=== PATIENT | female | born 1990 | race Caucasian/White ===

== ENCOUNTER 2017-07-25 12:01 | Inpatient (IN) | payer OTHER ==
[~2017-07-25] VITALS: Ht 162.6 cm; Wt 117.9 kg
[2017-07-25 12:09] VITALS: BP 137/82
--- NOTE | 2017-07-25 12:15 | NUR ---
PATIENT AMBULATED TO BED 10
--- NOTE | 2017-07-25 12:20 | NUR ---
PATIENT PRESENTS TO ED WITH c/o generalized weakness x1 week hx none; DENIES N/V/D; SKIN IS PINK/WARM/DRY; AAOX4 WITH EVEN AND STEADY GAIT; LUNGS CLEAR BL; HR EVEN AND REGULAR; PT DENIES ANY FEVER, CP, SOB, OR COUGH AT THIS TIME; PATIENT STATES PAIN OF 0/10 AT THIS TIME; VSS; PATIENT POSITIONED FOR COMFORT; HOB ELEVATED; BEDRAILS UP X2; BED DOWN. ER MD MADE AWARE OF PT STATUS.
--- NOTE | 2017-07-25 12:34 | NUR ---
DR FERRARO EVALUATING AAO PT AT BEDSIDE
[2017-07-25] MEDS ORDERED: NACL 0.9% 1,000 ML IV ONE ×2 (12:40→13:35)
[2017-07-25 13:03] LABS: BASOPHILS # (AUTO) 0.5 K/uL (0.00-0.22); BASOPHILS % (AUTO) 3.1 % (0.0-2.0); EOSINOPHILS # (AUTO) 0.1 K/uL (0-0.4); EOSINOPHILS % (AUTO) 0.6 % (0.0-4.0); HEMATOCRIT 50.4 % (36-48); HEMOGLOBIN 16.8 g/dL (12.0-16.0); LYMPHOCYTES # (AUTO) 1.1 K/uL (2.5-16.5); LYMPHOCYTES % (AUTO) 6.1 % (20.5-51.1); MEAN CORPUSCULAR HEMOGLOBIN 29 pg (27-31); MEAN CORPUSCULAR HGB CONC 33 g/dL (33-37); MEAN CORPUSCULAR VOLUME 87 fL (80-94); MONOCYTES # (AUTO) 0.4 K/uL (0.8-1.0); MONOCYTES % (AUTO) 2.4 % (1.7-9.3); NEUTROPHILS # (AUTO) 15.1 K/uL (1.8-7.7); NEUTROPHILS % (AUTO) 87.8 % (42.2-75.2); PLATELET COUNT (AUTO) 368 K/uL (140-450); RED BLOOD CELL COUNT(AUTO) 5.81 MIL/uL (4.20-5.40); RED CELL DISTRIBUTION WIDTH 12.9 % (11.6-13.7); WHITE BLOOD COUNT (AUTO) 17.3 K/uL (4.8-10.8)
[2017-07-25 13:26] LABS: ANION GAP 32.9 (8-16); CARBON DIOXIDE 12.7 mmol/L (21-32); CREATININE 1.5 mg/dL (0.6-1.3); POTASSIUM 4.6 mmol/L (3.5-5.1); TOTAL BILIRUBIN 0.7 mg/dL (0.0-1.0)
[2017-07-25] MEDS ORDERED: INSULIN REGULAR, HUMAN 100 UNIT/ML VIAL IVP ONE (13:35)
[2017-07-25 13:54] LABS: APPEARANCE,URINE HAZY (CLEAR); BILIRUBIN,URINE NEGATIVE (NEGATIVE); BLOOD, URINE 1+ (NEGATIVE); COLOR,URINE YELLOW (YELLOW); LEUKOCYTE ESTERASE ,URINE NEGATIVE (NEGATIVE); NITRITE, URINE NEGATIVE (NEGATIVE); PH,URINE 5.5 (5.0-9.0); UGLUCOSE 3+ (NEGATIVE)
[2017-07-25 14:04] LABS: RBC,URINE 0-5 (RARE) /HPF (0-5); WBC,URINE 0-5 (RARE) /HPF (0-5)
[2017-07-25 14:05] LABS: URIC ACID CRYSTALS,URINE 0-10 /HPF (None Seen); URINE AMORPHOUS URATE 1+ /HPF (None Seen); YEAST,URINE Few /HPF (None Seen)
[2017-07-25] MEDS ORDERED: INSULIN REGULAR, HUMAN 100 UNIT in NACL 0.9% 100 ML IV ONE ×2 (14:05)
[2017-07-25] MEDS ORDERED: NACL 0.9% 1,000 ML IV SCH (14:27)
[2017-07-25] MEDS ORDERED: ACETAMINOPHEN 325 MG TAB PO PRN (14:30)
[2017-07-25] MEDS ORDERED: ONDANSETRON 4 MG/2 ML VIAL IVP PRN (14:30)
[2017-07-25] MEDS ORDERED: BLOOD GLUCOSE MONITORING 1 DEV DEV FS SCH (14:30)
[2017-07-25] MEDS ORDERED: DEXTROSE 50% 50 ML SYR IVP PRN ×2 (14:30)
[2017-07-25] MEDS ORDERED: POTASSIUM CHL 20 MEQ/NACL 0.9% 1,000 ML IV ONE (14:30)
[2017-07-25] MEDS ORDERED: HYDROcodone/APAP 5/325 MG 1 TAB TAB PO PRN (14:30)
[2017-07-25 14:45] VITALS: BP 124/72
--- NOTE | 2017-07-25 15:05 | NUR ---
Patient will be admitted to care of DR PETERSON. Admited to ICU. Will go to room ICU5. Belongings list completed. Report to SARAHY SEBASTIAN.
--- NOTE | 2017-07-25 15:15 | NUR ---
CALLED DR. PETERSON TO VERIFY ORDERS SAID WILL CALL US BACK. WAITING FOR THE CALL.
[2017-07-25] MEDS: BLOOD GLUCOSE MONITORING 1 DEV DEV FS SCH ×9 (15:39→23:03)
--- NOTE | 2017-07-25 15:41 | NUR ---
AT 1345 DE RECEIVED FROM ER VIA GURNEY. PT A/O X4, ABLE TO MAKE NEEDS KNOWN. ORIENTED TO ICU, STAFF, BED, CALL LIGHT. PT ON BEDSIDE MONITOR. SKIN DRY AND WARM TO TOUCH. PUPILS REACTIVE TO LIGHT. LUNGS SOUND CLEAR ON AUSCULTATION. PERIPHERAL LINE ON RIGHT UPPER ARM 20 G. 0.9% SODIUM CHLORIDE BOLUS RUNNING. IV SITE INTACT. ABDOMEN SOFT ROUND AND NON-TENDER. ACTIVE BOWEL SOUND ON AUSCULTATION. SKIN INTACT. DENIES PAIN AT THIS TIME. KEPT HOB ELEVATED. PLACED SCDS ON BLE PER ORDER. WILL CONTINUE TO MONITOR.
[2017-07-25 16:00] VITALS: BP 103/69
[2017-07-25] MEDS: INSULIN REGULAR, HUMAN 100 UNIT in NACL 0.9% 100 ML IV SCH ×4 (16:25→20:07)
[2017-07-25 18:00] VITALS: BP 103/72
[2017-07-25 18:32] LABS: ANION GAP 27.1 (8-16); CARBON DIOXIDE 12.3 mmol/L (21-32); CREATININE 1.1 mg/dL (0.6-1.3); POTASSIUM 4.4 mmol/L (3.5-5.1)
--- NOTE | 2017-07-25 19:07 | NUR ---
PT RESTING IN BED COMFORTABLY. NO RESPIRATORY DISTRESS. ST ON MONITOR. NO CHANGE IN LOC. WILL CONTINUE TO MONITOR.
--- NOTE | 2017-07-25 19:17 | NUR ---
REPORT GIVEN TO NOC SHIFT RN FOR CONTINUITY OF CARE. PT ON STABLE CONDITION.
--- NOTE | 2017-07-25 19:23 | NUR ---
report received from am nurse. orders labs reviewed. no acute distress noted. will continue to observe.
--- NOTE | 2017-07-25 19:47 | NUR ---
PT AWAKE ALERT ORIENTED X4. PERRLA +3. STRONG UPPER AND LOWER EXTREMITIES. SINUS TACH 110-120S. NO EDEMA NOTED. LUNGS CLEAR, DIMINISHED @ BASES. ABD SOFT NON DISTENDED. PT HAD DINNER TONIGHT 80-90% EATEN. PT AMB @ BEDSIDE TO BEDSIDE COMMODE. SKIN INTACT. PERIPHERAL IVS NOTED TO L HAND AND R ANTECUBITAL. INSULIN DRIP @ 5 UNITS/HR. PT DENIES FEVER, COUGH, LIGHTHEADEDNESS AND PAIN @ THIS TIME. NO OTHER S/S OF ACUTE DISTRESS NOTED. WILL CONTINUE TO OBSERVE.
[2017-07-25 20:00] VITALS: BP 136/86
--- NOTE | 2017-07-25 20:26 | NUR ---
SPOKE WITH DR. NICHOLSON (SORTING AND FOLDING SUPERVISOR) TO CLARIFY IVF ORDERS. DR. PETERSON ORDERED NS AT 200 MLS/HR AND NS WITH 20MEQ KCL AT 100 MLS/HR (ONCE). INFORMED DR. NICHOLSON THAT CURRENT POTASSIUM LEVEL IS 4.4, BS AT [address] NICHOLSON ORDERED TO DC NS AT 200 MLS AND CONTINUE NS WITH 20 % KCL AT 100 MLS/HR.
--- NOTE | 2017-07-25 20:45 | NUR ---
PT AMB TO RESTROOM WITH ASSISTANCE OF CHARGE NURSE, PT ABLE TO AMBULATE, STEADY GAIT. WILL CONTINUE TO MONITOR.
--- NOTE | 2017-07-25 21:15 | NUR ---
FAMILY VISITORS @ BEDSIDE
[2017-07-25 22:00] VITALS: BP_SYST 124; BP_DIAS 7; BP_DIAS 72
--- NOTE | 2017-07-25 22:26 | NUR ---
PT AWAKE WATCHING TELEVISION, BS RECHECKED 271. PT DENIES PAIN @ THIS TIME. NO HEADACHE OR DIAPHORESIS NOTED. INSULIN DRIP RUNNING @ 3 UNIT/HR. NO OTHER S/S OF DISTRESS NOTED WILL CONTINUE TO OBSERVE.
[2017-07-26] VITALS (12 sets, daily range): BP systolic 107–147; BP diastolic 57–94
[2017-07-26] MEDS: BLOOD GLUCOSE MONITORING 1 DEV DEV FS SCH ×24 (00:06→22:59)
[2017-07-26] MEDS: INSULIN REGULAR, HUMAN 100 UNIT in NACL 0.9% 100 ML IV SCH ×8 (00:09→16:21)
--- NOTE | 2017-07-26 00:25 | NUR ---
BS CHECKED 245 - INSULIN DRIP @ 2 UNITS/HR. PT RESTING IN BED NO ACUTE S/S OF DISTRESS NOTED WILL CONTINUE TO OBSERVE.
[2017-07-26 00:33] LABS: ANION GAP 19.4 (8-16); CARBON DIOXIDE 16.6 mmol/L (21-32)
--- NOTE | 2017-07-26 02:10 | NUR ---
PT ASLEEP IN BED. VSS. PT AROUSABLE DENIES PAIN. WILL CONTINUE TO OBSERVE.
[2017-07-26] MEDS: POTASSIUM CHL 20 MEQ/NACL 0.9% 1,000 ML IV SCH ×3 (02:29→16:30)
--- NOTE | 2017-07-26 03:45 | NUR ---
PT ASLEEP AROUSABLE. INSULIN DRIP @ 2 UNITS/HR. WILL CONTINUE TO OBSERVE.
--- NOTE | 2017-07-26 05:55 | NUR ---
PT AMB TO RESTROOM WITH ASSIST. DENIES HEADACHE OR PAIN. WILL CONTINUE TO OBSERVE.
[2017-07-26 06:12] LABS: BASOPHILS # (AUTO) 0.3 K/uL (0.00-0.22); EOSINOPHILS % (AUTO) 0.1 % (0.0-4.0); HEMATOCRIT 45.1 % (36-48); HEMOGLOBIN 15.1 g/dL (12.0-16.0); LYMPHOCYTES % (AUTO) 19.5 % (20.5-51.1); MEAN CORPUSCULAR HEMOGLOBIN 29 pg (27-31); MEAN CORPUSCULAR HGB CONC 33 g/dL (33-37); MEAN CORPUSCULAR VOLUME 86 fL (80-94); MONOCYTES # (AUTO) 1.7 K/uL (0.8-1.0); MONOCYTES % (AUTO) 10.7 % (1.7-9.3); NEUTROPHILS # (AUTO) 10.6 K/uL (1.8-7.7); NEUTROPHILS % (AUTO) 67.7 % (42.2-75.2); PLATELET COUNT (AUTO) 341 K/uL (140-450); RED BLOOD CELL COUNT(AUTO) 5.25 MIL/uL (4.20-5.40); RED CELL DISTRIBUTION WIDTH 13.1 % (11.6-13.7); WHITE BLOOD COUNT (AUTO) 15.6 K/uL (4.8-10.8)
[2017-07-26 06:34] LABS: CREATININE 0.9 mg/dL (0.6-1.3)
--- NOTE | 2017-07-26 07:13 | NUR ---
REPORT GIVEN TO AM NURSE. ORDERS, POC ENDORSED TO AM NURSE. WILL CONTINUE TO MONITOR.
--- NOTE | 2017-07-26 07:25 | NUR ---
RECEIVED BEDSIDE REPORT FROM OFFICE SECRETARY RN,HO, FOR CONTINUITY OF CARE. PATIENT OBSERVED RESTING IN BED, SEMI FOWLERS IN LOWEST POSSIBLE POSITION, AAOX4, ABLE TO FOLLOW COMMANDS AND MAKE NEEDS KNOWN. SKIN IS INTACT, WARM AND DRY. VVS, SR ON MONITOR, NO COMPLAINTS OF PAIN AT THIS TIME. LUNG SOUNDS ARE CLEAR, REGULAR AND SYMMETRICAL. S1 AND S2 HEART SOUNDS HEARD, CAP REFILL LESS THAN 3 SECS. PATIENT HAS PERIPHERAL IV TO LEFT HAND, ASYMPTOMATIC, PATENT, AND INTACT WITH INSULIN DRIP RUNNING AT 3UNITS/HR. LAST BS WAS 285 PER OFFICE SECRETARY RN. PATIENT HAS ANOTHER PERIPHERAL IV TO RIGHT AC, ASYMPTOMATIC, PATENT, AND INTACT. NO SIGNS OF DISTRESS NOTED, PATIENT DENIES ANY FEVER OR COUGH AT THIS TIME. WILL CONTINUE TO MONITOR.
--- NOTE | 2017-07-26 07:55 | NUR ---
BREAKFAST TRAY PROVIDED TO PATIENT, NO SIGNS OF DISTRESS NOTED.
--- NOTE | 2017-07-26 09:20 | NUR ---
DR. PETERSON IN TO SEE PATIENT, UPDATED ON PATIENT'S CONDITION. WILL FOLLOW UP ON ANY ORDERS.
--- NOTE | 2017-07-26 11:55 | NUR ---
LUNCH TRAY PROVIDED FOR PATIENT, NO SIGNS OF DISTRESS NOTED AT THIS TIME. WILL MONITOR CLOSELY
[2017-07-26 12:52] LABS: ANION GAP 15.2 (8-16); CREATININE 0.9 mg/dL (0.6-1.3); POTASSIUM 4.2 mmol/L (3.5-5.1)
--- NOTE | 2017-07-26 14:08 | NUR ---
CM NOTE CONCURRENT REVIEW FAXED TO [facility] / FAX# [phone], ATTN: HERVE #[phone]
--- NOTE | 2017-07-26 17:47 | NUR ---
PROVIDED PATIENT WITH DINNER TRAY, NO SIGNS OF DISTRESS NOTED. DENIES ANY PAIN OR WEAKNESS AT THIS TIME. WILL CONTINUE TO MONITOR
--- NOTE | 2017-07-26 18:35 | NUR ---
PATIENT'S FAMILY AT BEDSIDE, UPDATED ON PATIENT'S CONDITION. PRESENTS NO SIGNS OF DISTRESS AT THIS TIME. WILL CONTINUE TO MONITOR
--- NOTE | 2017-07-26 19:06 | NUR ---
GAVE BEDSIDE REPORT TO SLINGER SEQUINS RN, ECHO, FOR CONTINUITY OF CARE. PATIENT PRESENTS NO SIGNS OF DISTRESS AT THIS TIME.
--- NOTE | 2017-07-26 19:06 | NUR ---
RECEIVED REPORT FROM SARAHY VICTOR AT BEDSIDE.
[2017-07-26 19:11] LABS: ANION GAP 12.3 (8-16); CARBON DIOXIDE 19.9 mmol/L (21-32); CREATININE 0.9 mg/dL (0.6-1.3); POTASSIUM 3.2 mmol/L (3.5-5.1)
--- NOTE | 2017-07-26 19:20 | NUR ---
SHIFT ASSESSMENT DONE. PATIENT AWAKE, ALERT AND ORIENTED X 4. VERBALLY RESPONSIVE, ABLE TO MAKE NEEDS KNOWN. SKIN WARM AND DRY TO TOUCH, RESPIRATIONS EVEN AND UNLABORED. NO APPARENT PHYSICAL DISTRESS. LUNG SOUNDS EQUAL BILATERALLY. RECEIVED ON INSULIN DRIP HUMULIN R 3 UNITS/HR. NO SIGNS/SYMPTOMS OF HYPERGLYCEMIA NOTED. WILL CONTINUE TO MONITOR BLOOD SUGAR Q1H. ABLE TO MOVE ALL EXTREMITIES. DENIES PAIN OR DISCOMFORT. SAFETY PRECAUTIONS MAINTAINED, BED ON LOW POSITION, CALL LIGHT WITHIN REACH, BED RAILS X 3, REMINDED TO USE CALL LIGHT WITHIN REACH.
--- NOTE | 2017-07-26 20:10 | NUR ---
Accucheck done: 261 mg/dl. Continue on 3 units/hr. No signs/symptoms of hyperglycemia noted. Will continue to monitor.
[2017-07-26] MEDS: MICONAZOLE VAG 2% 45 GM TUBE VG SCH (20:20)
--- NOTE | 2017-07-26 21:06 | NUR ---
Accucheck done: 262 mg/dl. Continue on 3 units/hr. No signs/symptoms of hyperglycemia noted. Will continue to monitor.
--- NOTE | 2017-07-26 22:06 | NUR ---
ACCUCHECK DONE: 271 MG/DL. CONTINUE ON INSULIN DRIP 3 UNITS/HR. NO SIGNS/SYMPTOMS OF HYPERGLYCEMIA. WILL CONTINUE TO MONITOR.
--- NOTE | 2017-07-26 23:00 | NUR ---
ACCUCHECK: 287 MG/DL. CONTINUE ON INSULIN DRIP 3U/HR. NO S/SX OF HYPERGLYCEMIA NOTED. WILL CONTINUE TO MONITOR.
[2017-07-27] VITALS (12 sets, daily range): BP systolic 95–133; BP diastolic 55–78
--- NOTE | 2017-07-27 | NUR ---
ACCUCHECK: 238 MG/DL. TITRATED INSULIN DRIP FROM 3 UNITS/HR TO UNITS/ HR. WILL CONTINUE TO MONITOR BLOOD SUGAR Q1H. NO SIGNS/SYMPTOMS OF HYPERGLYCEMIA NOTED.
[2017-07-27] MEDS: BLOOD GLUCOSE MONITORING 1 DEV DEV FS SCH ×24 (00:01→23:49)
[2017-07-27 00:40] LABS: ANION GAP 14.1 (8-16); CARBON DIOXIDE 20.1 mmol/L (21-32); CREATININE 0.8 mg/dL (0.6-1.3); POTASSIUM 3.2 mmol/L (3.5-5.1)
--- NOTE | 2017-07-27 01:00 | NUR ---
ACCUCHECK DONE: 234 MG/DL. CONTINUE INSULIN DRIP 2 UNITS/HR PER PROTOCOL. NO SIGNS/SYMPTOMS OF HYPERGLYCEMIA. WILL CONTINUE TO MONITOR.
--- NOTE | 2017-07-27 02:02 | NUR ---
ACCUCHECK DONE: 234 MG/DL. CONTINUE INSULIN DRIP 2 UNITS/HR PER PROTOCOL. NO SIGNS/SYMPTOMS OF HYPERGLYCEMIA. WILL CONTINUE TO MONITOR.
[2017-07-27] MEDS: POTASSIUM CHL 20 MEQ/NACL 0.9% 1,000 ML IV SCH ×3 (02:47→22:34)
--- NOTE | 2017-07-27 03:00 | NUR ---
ACCUCHECK DONE: 249 MG/DL. CONTINUE INSULIN DRIP 2 UNITS/HR PER PROTOCOL. NO SIGNS/SYMPTOMS OF HYPERGLYCEMIA. WILL CONTINUE TO MONITOR.
--- NOTE | 2017-07-27 04:10 | NUR ---
ACCUCHECK DONE: 219 MG/DL. CONTINUE INSULIN DRIP 2 UNITS/HR PER PROTOCOL. NO SIGNS/SYMPTOMS OF HYPERGLYCEMIA. ASLEEP AT THIS TIME. WILL CONTINUE TO MONITOR.
--- NOTE | 2017-07-27 05:01 | NUR ---
ACCUCHECK DONE: 219 MG/DL. CONTINUE INSULIN DRIP 2 UNITS/HR PER PROTOCOL. NO SIGNS/SYMPTOMS OF HYPERGLYCEMIA. ASLEEP AT THIS, NO APPARENT DISTRESS. WILL CONTINUE TO MONITOR.
--- NOTE | 2017-07-27 06:20 | NUR ---
ACCUCHECK DONE 218 MG/DL. CONTINUE ON 2 UNITS/HR. NO S/SX OF HYPERGLYCEMIA NOTED. CONTINUE TO MONITOR.
[2017-07-27 06:43] LABS: CREATININE 0.6 mg/dL (0.6-1.3)
--- NOTE | 2017-07-27 07:10 | NUR ---
ACCUCHECK DONE 236 MG/DL. CONTINUE ON 2 UNITS/HR. NO S/SX OF HYPERGLYCEMIA NOTED. CONTINUE TO MONITOR.
--- NOTE | 2017-07-27 07:16 | NUR ---
REPORT GIVEN TO SARAHY ESPINAL AT BEDSIDE FOR CONTINUITY OF CARE.
--- NOTE | 2017-07-27 07:30 | NUR ---
RECEIVED BEDSIDE REPORT FROM FACILITY SERVICE ASSOCIATE RN. PATIENT IS RESTING IN BED, AAOX4, ABLE TO FOLLOW COMMANDS AND MAKE NEEDS KNOWN. AFEBRILE. SR ON MONITOR, S1 S2 HEARD. NO C/O PAIN AT THIS TIME. PT IS ON ROOM AIR, LUNG SOUNDS CLEAR, BREATHING EVEN AND UNLABORED. ABDOMEN SOFT, NONTENDER WITH ACTIVE BOWEL SOUNDS. PATIENT HAS PERIPHERAL IVS G20 TO LEFT HAND, G20 TO RIGHT HAND, G22 TO RIGHT FOREARM ALL ASYMPTOMATIC, PATENT, AND INTACT. INSULIN DRIP RUNNING AT 2 UNITS/HR. SKIN IS INTACT, WARM AND DRY. NO SIGNS OF DISTRESS NOTED. ABLE TO MOVE ALL EXTREMITIES. SAFETY PRECAUTIONS IN PLACE. WILL CONTINUE TO MONITOR.
[2017-07-27] MEDS: PANTOPRAZOLE 40 MG TABEC PO SCH (09:09)
--- NOTE | 2017-07-27 09:11 | NUR ---
ADMINISTERED MEDICATION. PT TOLERATED WELL.
--- NOTE | 2017-07-27 09:30 | NUR ---
DR. PETERSON IN TO SEE AND EXAMINE PT. MADE AWARE OF POTASSIUM LEVEL OF 3.0. WILL FOLLOW UP ON ORDERS.
--- NOTE | 2017-07-27 11:27 | NUR ---
PATIENT HAS BEEN SCREENED AND CATEGORIZED HIGH NUTRITION RISK. PATIENT WILL BE SEEN WITHIN 1-2 DAYS OF ADMISSION. 07/26/17 - 07/27/[address]
--- NOTE | 2017-07-27 11:45 | NUR ---
NO CHANGE OF CONDITION AT THIS TIME. PT IS AWAKE, AAOX4, VSS. SAFETY PRECAUTIONS IN PLACE. WILL CONTINUE TO MONITOR.
[2017-07-27 12:40] LABS: ANION GAP 13.8 (8-16); CARBON DIOXIDE 20.8 mmol/L (21-32); CREATININE 0.7 mg/dL (0.6-1.3); POTASSIUM 3.6 mmol/L (3.5-5.1)
[2017-07-27] MEDS ORDERED: PROBIOTIC SCREEN 1 EA MISC MC PRN (14:20)
--- NOTE | 2017-07-27 14:42 | NUR ---
FAMILY AT BEDSIDE. PT IS STABLE. VITAL SIGNS WNL. NO C/O PAIN OR DISCOMFORT. WILL CONTINUE TO MONITOR.
--- NOTE | 2017-07-27 15:13 | NUR ---
FAXED CONCURRENT REVIEW TO [facility] [phone] PHONE FRANSICO [phone]
--- NOTE | 2017-07-27 15:44 | NUR ---
07/27/2017 RD INITIAL ASSESSMENT COMPLETED PLEASE REFER TO NUTRITION ASSESSMENT UNDER CARE ACTIVITY FOR ESTIMATED NUTRITIONAL NEEDS. CONTINUE 60 GMS [facility] DIET NURSING AND DIETARY STAFF TO ENCOURAGE INCREASED INTAKE TOLERATED RD TO FOLLOW-UP IN 3-5 DAYS PATIENT IS MODERATE RISK. JOSE ROBERTO YOST, RD
--- NOTE | 2017-07-27 17:53 | NUR ---
DINNER SERVED. PT IS AAOX4, VITAL SIGNS STABLE. NO C/O PAIN OR DISCOMFORT. NEEDS WELL ATTENDED. SAFETY MEASURES ENSURED. WILL CONTINUE TO MONITOR.
[2017-07-27 18:35] LABS: ANION GAP 14.9 (8-16); CARBON DIOXIDE 20.3 mmol/L (21-32); CREATININE 0.7 mg/dL (0.6-1.3); POTASSIUM 3.2 mmol/L (3.5-5.1)
--- NOTE | 2017-07-27 19:17 | NUR ---
REPORT GIVEN TO NIGHT NURSE FOR CONTINUITY OF CARE. PT IS IN STABLE CONDITION.
--- NOTE | 2017-07-27 19:20 | NUR ---
RECEIVED REPORT FROM MORNING SHIFT NURSE CAMPOS. PT IS AWAKE, ALERT AND ORIENTED X4, VERBALLY RESPONSIVE, ABLE TO MAKE NEEDS KNOWN. BILATERAL LUNG SOUND CLEAR. S1 AND S2 HEARD. SR ON THE MONITOR. PT IS ON ROOM AIR O2 SAT 97%. NO ACUTE RESPIRATORY DISTRESS NOTED. BOWEL SOUND PRESENT AT ALL 4 QUADS.PATIENT HAS PERIPHERAL IVS G20 TO LEFT HAND, G20 TO RIGHT HAND, G22 TO RIGHT FOREARM ALL ASYMPTOMATIC, PATENT, AND INTACT. INSULIN DRIP RUNNING AT 3 UNITS/HR. SKIN IS INTACT, WARM AND DRY. SAFETY PRECAUTIONS IN PLACE. WILL CONTINUE TO MONITOR.
--- NOTE | 2017-07-27 20:10 | NUR ---
BS CHECKED 300 NOTED, CONTINUOS 3 UNITS FOR INSULIN DRIP. NO ACUTE DISTRESS NOTED. PT DENIES PAIN AT THIS TIME. CONTINUE TO MONITOR.
--- NOTE | 2017-07-27 21:00 | NUR ---
PT REFUSED THE MEDICATION MONISTAT RISK AND BENEFIT EXPLAINED.
[2017-07-27] MEDS: MICONAZOLE VAG 2% 45 GM TUBE VG SCH (21:08)
--- NOTE | 2017-07-27 21:10 | NUR ---
BS CHECKED 256 NOTED, CONTINUOS 3 UNITS FOR INSULIN DRIP. NO ACUTE DISTRESS NOTED. PT DENIES PAIN AT THIS TIME. SR ON THE MONITOR. CONTINUE TO MONITOR.
--- NOTE | 2017-07-27 22:10 | NUR ---
BS CHECKED 226 NOTED, CONTINUOS 2 UNITS FOR INSULIN DRIP. NO ACUTE DISTRESS NOTED. PT DENIES PAIN AT THIS TIME. SR ON THE MONITOR. CONTINUE TO MONITOR.
--- NOTE | 2017-07-27 23:10 | NUR ---
BS CHECKED 231 NOTED, CONTINUOS 2 UNITS FOR INSULIN DRIP. NO ACUTE DISTRESS NOTED. PT DENIES PAIN AT THIS TIME. SR ON THE MONITOR. CONTINUE TO MONITOR.
[2017-07-28] VITALS (9 sets, daily range): BP systolic 102–127; BP diastolic 58–76
--- NOTE | 2017-07-28 00:10 | NUR ---
BS CHECKED 217 NOTED, CONTINUOS 2 UNITS FOR INSULIN DRIP AND NS WITH KCL 20MEQ 100ML/HR. NO ACUTE DISTRESS NOTED. PT DENIES PAIN AT THIS TIME. SR ON THE MONITOR. CONTINUE TO MONITOR.
[2017-07-28] MEDS: BLOOD GLUCOSE MONITORING 1 DEV DEV FS SCH ×15 (00:31→20:53)
[2017-07-28 00:46] LABS: ANION GAP 13.6 (8-16); CARBON DIOXIDE 22.7 mmol/L (21-32); CREATININE 0.6 mg/dL (0.6-1.3); POTASSIUM 3.3 mmol/L (3.5-5.1)
--- NOTE | 2017-07-28 02:10 | NUR ---
BS CHECKED 214 NOTED, CONTINUOS 2 UNITS FOR INSULIN DRIP. NO ACUTE DISTRESS NOTED. PT DENIES PAIN AT THIS TIME. SR ON THE MONITOR. CALL LIGHT WITHIN REACH. CONTINUE TO MONITOR.
--- NOTE | 2017-07-28 03:10 | NUR ---
BS CHECKED 207 NOTED, CONTINUOS 2 UNITS FOR INSULIN DRIP. PT IS IN ASLEEP, AROUSABLE TO VOICE. NO ACUTE DISTRESS NOTED. PT DENIES PAIN AT THIS TIME. SR ON THE MONITOR. CALL LIGHT WITHIN REACH. CONTINUE TO MONITOR.
--- NOTE | 2017-07-28 04:10 | NUR ---
BS CHECKED 205 NOTED, CONTINUOS 2 UNITS FOR INSULIN DRIP. PT IS IN ASLEEP, AROUSABLE TO VOICE. NO ACUTE DISTRESS NOTED. PT DENIES PAIN AT THIS TIME. SR ON THE MONITOR. CALL LIGHT WITHIN REACH. CONTINUE TO MONITOR.
--- NOTE | 2017-07-28 05:10 | NUR ---
BS CHECKED 181 NOTED, DECREASED 1 UNITS FOR INSULIN DRIP. PT IS IN ASLEEP, AROUSABLE TO VOICE. NO ACUTE DISTRESS NOTED. PT DENIES PAIN AT THIS TIME. SR ON THE MONITOR. CALL LIGHT WITHIN REACH. CONTINUE TO MONITOR.
[2017-07-28 07:06] LABS: ANION GAP 14.5 (8-16); CARBON DIOXIDE 21.7 mmol/L (21-32); CREATININE 0.6 mg/dL (0.6-1.3); POTASSIUM 3.2 mmol/L (3.5-5.1)
--- NOTE | 2017-07-28 07:10 | NUR ---
BS CHECKED 187 NOTED, CONTINUE TO 1 UNITS FOR INSULIN DRIP. PT IS IN ASLEEP, AROUSABLE TO VOICE. NO ACUTE DISTRESS NOTED. PT DENIES PAIN AT THIS TIME. SR ON THE MONITOR. CALL LIGHT WITHIN REACH. CONTINUE TO MONITOR.
--- NOTE | 2017-07-28 07:20 | NUR ---
REPORT GIVEN TO RATANA. WEATHERS FOR CONTINUITY OF CARE.
--- NOTE | 2017-07-28 07:25 | NUR ---
RECEIVED REPORT FROM SEED TRUCKER RN FOR CONTINUITY OF CARE. PATIENT IS AAOX4, ABLE TO FOLLOW COMMANDS AND MAKE NEEDS KNOWN. SR ON MONITOR, S1 +S2 HEARD. NO C/O PAIN AT THIS TIME. AFEBRILE. PT IS ON ROOM AIR, LUNG SOUNDS CLEAR, NO SOB OR DISTRESS NOTED. ABDOMEN SOFT, NONTENDER WITH ACTIVE BOWEL SOUNDS. PATIENT HAS PERIPHERAL IVS G20 TO LEFT HAND, G20 TO RIGHT HAND, G22 TO RIGHT FOREARM ALL ASYMPTOMATIC, PATENT, AND INTACT. PT IS RECEIVING ORDERED IV FLUID AT 100 ML/HR AND INSULIN DRIP RUNNING AT 2 UNITS/HR. SKIN IS INTACT, WARM AND DRY. ABLE TO MOVE ALL EXTREMITIES. HOB 30 DEGREES AND CALL LIGHT WITHIN REACH. NEEDS WELL ATTENDED. WILL CONTINUE TO MONITOR.
--- NOTE | 2017-07-28 07:49 | NUR ---
BREAKFAST TRAY PROVIDED TO PT. NO S/SX OF DISTRESS NOTED.
[2017-07-28] MEDS: POTASSIUM CHLORIDE 10 MEQ TABER PO SCH (08:51)
[2017-07-28] MEDS: PANTOPRAZOLE 40 MG TABEC PO SCH (08:52)
[2017-07-28] MEDS: POTASSIUM CHL 20 MEQ/NACL 0.9% 1,000 ML IV SCH ×2 (08:55→20:59)
--- NOTE | 2017-07-28 09:00 | NUR ---
MEDICATIONS ADMINISTERED. PT TOLERATED WELL.
--- NOTE | 2017-07-28 11:00 | NUR ---
NO CHANGE OF CONDITION AT THIS TIME. FAMILY AT BEDSIDE. VSS. NO C/O PAIN OR DISCOMFORT.
--- NOTE | 2017-07-28 12:30 | NUR ---
PROVIDED LUNCH TO PT. NO S/SX OF DISTRESS NOTED.
[2017-07-28] MEDS ORDERED: INSULIN LANTUS 100 UNITS/ML 10 ML VIAL SUBQ SCH (12:59)
--- NOTE | 2017-07-28 13:00 | NUR ---
PT SEEN AND EXAMINED BY DR. PETERSON. WILL FOLLOW UP ON ORDERS.
[2017-07-28 13:07] LABS: ANION GAP 14.3 (8-16); CARBON DIOXIDE 22.6 mmol/L (21-32); CREATININE 0.6 mg/dL (0.6-1.3); POTASSIUM 3.9 mmol/L (3.5-5.1)
--- NOTE | 2017-07-28 15:28 | NUR ---
FAXED CONCURRENT REVIEW TO [facility] [phone] PHONE FRANSICO [phone]
--- NOTE | 2017-07-28 15:30 | NUR ---
NO CHANGE OF CONDITION AT THIS TIME. VITAL SIGNS STABLE. AAOX4. SAFETY PRECAUTIONS IN PLACE. WILL CONTINUE TO MONITOR.
[2017-07-28] MEDS: INSULIN LISPRO SLIDING SCALE 100 UNITS/ML VIAL SUBQ PRN ×2 (17:03→20:54)
--- NOTE | 2017-07-28 17:15 | NUR ---
PT TRANSFERRED TO TELEMETRY ROOM 121A. VITAL SIGNS STABLE. NO DISTRESS NOTED. REPORT GIVEN TO SARAHY SILVA FOR CONTINUITY OF CARE.
--- NOTE | 2017-07-28 17:15 | NUR ---
RECEIVED FROM ICU VIA [employer]. AWAKE, ALERT, AND ORIENTED X4. IN STABLE CONDITION. KEEP COMFORTABLE ON BED. CALL LIGHT WITHIN REACH.
[2017-07-28] MEDS: INSULIN LISPRO 100 UNITS/ML VIAL SUBQ SCH (18:01)
--- NOTE | 2017-07-28 19:14 | NUR ---
REPORT GIVEN TO EVONNE DAVIDSON. IVF INFUSING WELL. IN STABLE CONDITION.
--- NOTE | 2017-07-28 19:38 | NUR ---
RECEIVED FROM AM RN IN BED AWAKE AND IN SITTING UP POSITION WATCHING TV. A/O X 4. ANSWERING PUZZLES IN A SMALL BOOK.ABLE TO VERBALIZE NEEDS WELL IN FAROESE. PT. CARE PLANS FOR THE NIGHT DISCUSSED WITH HER . ORIENTED X 4. CALL LIGHT WITH IN REACH. DX. NEW DIAGNOSED DIABETES AND DKA. DENIES ANY PAIN AT THIS TIME. RE-ORIENTED TO CALL LIGHT USE AND TO CALL FOR ANY HELP SHE MAY NEED. BED ALARM ON
[2017-07-28] MEDS: MICONAZOLE VAG 2% 45 GM TUBE VG SCH (20:55)
--- NOTE | 2017-07-28 23:16 | NUR ---
PT. SLEEPING AT THIS TIME. CALL LIGHT WITH IN REACH. NO SOB. NO RESTLESSNESS.
[2017-07-29 00:49] VITALS: BP 124/71
--- NOTE | 2017-07-29 04:00 | NUR ---
SLEEPING WELL. NO RESTLESSNESS NOTED. CALL LIGHT AT BEDSIDE. ENCOURAGED TO CALL FOR ANY HELP SHE MAY NEED. INDEPENDENT.
[2017-07-29] MEDS: POTASSIUM CHL 20 MEQ/NACL 0.9% 1,000 ML IV SCH ×2 (04:30→07:56)
[2017-07-29] MEDS: BLOOD GLUCOSE MONITORING 1 DEV DEV FS SCH ×2 (05:41→12:08)
[2017-07-29] MEDS: INSULIN LISPRO SLIDING SCALE 100 UNITS/ML VIAL SUBQ PRN (05:42)
[2017-07-29 06:16] LABS: HEMATOCRIT 37.2 % (36-48); HEMOGLOBIN 12.9 g/dL (12.0-16.0); MEAN CORPUSCULAR HEMOGLOBIN 30 pg (27-31); MEAN CORPUSCULAR HGB CONC 35 g/dL (33-37); MEAN CORPUSCULAR VOLUME 85 fL (80-94); PLATELET COUNT (AUTO) 214 K/uL (140-450); RED BLOOD CELL COUNT(AUTO) 4.36 MIL/uL (4.20-5.40); RED CELL DISTRIBUTION WIDTH 12.6 % (11.6-13.7); WHITE BLOOD COUNT (AUTO) 11.2 K/uL (4.8-10.8)
--- NOTE | 2017-07-29 06:18 | NUR ---
SLEEPING WELL THIS SHIFT. NO SOB. NO NOTED S/S OF HYPER /HYPOGLYCEMIA. ABLE TO VERBALIZE NEEDS WELL. CALL LIGHT WITH IN REACH.
--- NOTE | 2017-07-29 07:05 | NUR ---
RECEIVED REPORT FROM RESIDENTIAL SPECIALIST NURSE EVONNE AT BEDSIDE FOR CONTINUITY OF CARE. PT IS AWAKE AND ORIENTED. INTRODUCED SELF AND UPDATED BOARD. NO SIGNS OF DISTRESS. PT DENIES PAIN. BED IN LOW POSITION, WHEELS LOCKED, CALL LIGHT WITHIN REACH WILL CONTINUE TO MONITOR.
[2017-07-29 07:40] LABS: LYMPHOCYTES % (MANUAL) 26 % (20-46)
[2017-07-29 07:41] LABS: MONOCYTES % (MANUAL) 6 % (5-12)
[2017-07-29 08:00] VITALS: BP 110/65
[2017-07-29] MEDS: PANTOPRAZOLE 40 MG TABEC PO SCH (08:20)
[2017-07-29] MEDS: POTASSIUM CHLORIDE 10 MEQ TABER PO SCH (08:20)
[2017-07-29] MEDS: INSULIN LISPRO 100 UNITS/ML VIAL SUBQ SCH (08:22)
[2017-07-29] MEDS ORDERED: INSULIN LANTUS 100 UNITS/ML 10 ML VIAL SUBQ SCH ×2 (09:00)
--- NOTE | 2017-07-29 09:00 | NUR ---
ADMINISTERED SCHEDULED MEDS. EDUCATED PT ON INSULIN ADMINISTRATION AND TIME. EDUCATED ON CARBOHYDRATE MONITORING IN DIET AND EXERCISE. PT VERBALIZED UNDERSTANDING. NO SIGNS OF DISTRESS. WILL CONTINUE TO MONITOR.
[2017-07-29 09:54] LABS: ANION GAP 13.8 (8-16); CARBON DIOXIDE 23.6 mmol/L (21-32); CREATININE 0.6 mg/dL (0.6-1.3); POTASSIUM 3.4 mmol/L (3.5-5.1)
[2017-07-29] MEDS ORDERED: METF500T PO (09:58)
[2017-07-29] MEDS ORDERED: HUM SUBQ (09:58)
[2017-07-29] MEDS ORDERED: GLUC-805 FS (09:58)
[2017-07-29] MEDS ORDERED: LANTUS SUBQ (09:58)
[2017-07-29] MEDS ORDERED: INSULIN LISPRO 100 UNITS/ML VIAL SUBQ SCH (12:00)
--- NOTE | 2017-07-29 12:09 | NUR ---
EDUCATED PT ON BLOOD GLUCOSE MONITORING AND INSTRUCTIONS. PT DEMONSTRATED BLOOD SUGAR CHECK APPROPRIATELY ON LEFT FINGER. BS WAS 181. VERBALIZED UNDERSTANDING. NUTRITION TEACHING ON DIABETIC DIET DONE BY INGREDIENT SCALER HELPER AND HANDOUT PROVIDED.
--- NOTE | 2017-07-29 12:30 | NUR ---
EDUCATED PT ON INSULIN ADMINISTRATION ON LANTUS AND HUMALOG. PT DEMONSTRATED TEACHING BY SELF ADMINISTERING HUMALOG 8UNITS SUBQ TO ABD APPROPRIATELY. PT TOLERATED WELL AND VERBALIZED UNDERSTANDING.
--- NOTE | 2017-07-29 13:45 | NUR ---
PT D/C TO GO HOME. GAVE INSTRUCTIONS, HANDOUT, RX, LABS, AND FOLLOW UP APPOINTMENT. PT VERBALIZED UNDERSTANDING AND SIGNED FORMS. PT REPEATED TEACHING VERBALLY ABOUT BLOOD GLUCOSE MONITORING, INSULIN ADMINISTRATION, METFORMIN, AND MEDICATION SIDE EFFECTS. REMOVED IV FROM LEFT HAND 22G AND R FA 22G, IV CATHETER TIPS INTACT. APPLIED DRESSING AND PRESSURE TO SITE. NO BLEEDING NOTED. REMOVED ID BANDS. PT CHANGED IN OWN CLOTHES AND LEFT WITH ALL PERSONAL BELONGINGS. FAMILY CAME TO CEMENT PRODUCTION PLANT OPERATOR PT. LEFT VIA AMBULATION WITH STEADY GAIT. LEFT IN STABLE CONDITION.
== END 2017-07-29 13:45 | disposition home or self-care (01) | DRG 420 ==
LOC: MED 12:01 → EDBEDREQSVC 14:21 → MIC 14:33 → MTU 07-28 17:04
PROVIDERS: ADMIT Hospitalist; ATTEND Hospitalist
DX: E11.10 Type 2 diabetes mellitus with ketoacidosis without coma (principal); N17.9 Acute kidney failure, unspecified; E83.51 Hypocalcemia; Z68.41 Body mass index [BMI] 40.0-44.9, adult; B37.3 Candidiasis of vulva and vagina; E87.6 Hypokalemia; E87.1 Hypo-osmolality and hyponatremia; D72.829 Elevated white blood cell count, unspecified; E66.01 Morbid (severe) obesity due to excess calories
CPT/HCPCS: 36415; 80048; 80053; 81001; 82009; 82948; 83036; 83735; 85025; 87081; 87086; 96360; 96361; 99291; J1815; J7030

== ENCOUNTER 2019-06-01 14:01 | Inpatient (IN) | payer OTHER ==
[~2019-06-01] VITALS: Ht 165.1 cm; Wt 68.0 kg
[~2019-06-01 14:01] MED LIST: GLUC-805 FS; HUM SUBQ; LANTUS SUBQ; METF500T PO
[2019-06-01 14:07] VITALS: BP 151/98
--- NOTE | 2019-06-01 14:13 | NUR ---
PT AMB TO BED 7 WITH STEADY GAIT
--- NOTE | 2019-06-01 14:26 | NUR ---
AB PAIN, NAUSEA, AND CONSTIPATION X 4 DAYS. LAST BM 4 DAYS AGO APPROX 6 AND A HALF WEEKS 3, 2 MISCARRIAGES, LIVING 1 PMH- DM. DENIES V/D; SKIN IS PINK/WARM/DRY; AAOX4 WITH EVEN AND STEADY GAIT; LUNGS CLEAR BL; HR EVEN AND REGULAR; PT DENIES ANY FEVER, CP, SOB, OR COUGH AT THIS TIME; PATIENT STATES PAIN OF 10/10 AT THIS TIME; VSS; PATIENT POSITIONED FOR COMFORT; HOB ELEVATED; BEDRAILS UP X2; BED DOWN. ER MD MADE AWARE OF PT STATUS.
[2019-06-01] MEDS ORDERED: NACL 0.9% 1,000 ML IV SCH ×2 (14:32→16:25)
[2019-06-01] MEDS ORDERED: ONDANSETRON 4 MG/2 ML VIAL IVP ONE (14:35)
[2019-06-01 15:25] LABS: HEMATOCRIT 43.1 % (36-48); HEMOGLOBIN 14.3 g/dL (12.0-16.0); MEAN CORPUSCULAR HEMOGLOBIN 31 pg (27-31); MEAN CORPUSCULAR HGB CONC 33 g/dL (33-37); MEAN CORPUSCULAR VOLUME 91.9 fL (80-94); PLATELET COUNT (AUTO) 532 K/uL (140-450); RED BLOOD CELL COUNT(AUTO) 4.69 MIL/uL (4.20-5.40)
--- NOTE | 2019-06-01 15:40 | NUR ---
NOTIFIED MD PT HAS HEADACHE AND RR 30S, HR 130S. INSTRUCTED PT DEEP BREATHING.
[2019-06-01] MEDS ORDERED: ACETAMINOPHEN 325 MG TAB PO ONE (15:50)
[2019-06-01] MEDS ORDERED: ACETAMINOPHEN EXTRA STRENGTH 500 MG TAB PO ONE (15:50)
[2019-06-01 15:53] LABS: ALBUMIN 2.8 g/dL (3.4-5.0); ANION GAP 31.1 (8-16); TOTAL BILIRUBIN 0.5 mg/dL (0.0-1.0)
[2019-06-01 15:59] LABS: CARBON DIOXIDE 5.6 mmol/L (21-32); POTASSIUM 2.7 mmol/L (3.5-5.1)
[2019-06-01 16:07] LABS: WHITE BLOOD COUNT (AUTO) 28.2 K/uL (4.8-10.8)
[2019-06-01 16:21] LABS: APPEARANCE,URINE CLEAR (CLEAR); BILIRUBIN,URINE NEGATIVE (NEGATIVE); BLOOD, URINE TRACE-I (NEGATIVE); COLOR,URINE YELLOW (YELLOW); LEUKOCYTE ESTERASE ,URINE NEGATIVE (NEGATIVE); NITRITE, URINE NEGATIVE (NEGATIVE); PH,URINE 5.5 (5.0-9.0); UGLUCOSE 2+ (NEGATIVE)
[2019-06-01] MEDS ORDERED: cefTRIAXone 1,000 MG in LIDOCAINE MPF 1% 2.1 ML IM SCH (16:25)
[2019-06-01] MEDS ORDERED: AZITHROMYCIN 500 MG in DEXTROSE 5% 250 ML IV ONE (16:35)
[2019-06-01] MEDS ORDERED: POTASSIUM CHL 40 MEQ/ D5-1/2NS 1,000 ML IV ONE (16:35)
[2019-06-01] MEDS ORDERED: AZITHROMYCIN 500 MG INJ VIAL IV ONE (16:39)
[2019-06-01 16:57] LABS: RBC,URINE 0-5 /HPF (0-5); WBC,URINE 0-5 /HPF (0-5)
[2019-06-01] MEDS ORDERED: cefTRIAXone 1,000 MG VIAL ONE (17:09)
[2019-06-01] MEDS ORDERED: NACL 0.9% 3,000 ML IV SCH (17:17)
[2019-06-01] MEDS ORDERED: LORazepam 2 MG/ML VIAL IVP PRN (17:20)
[2019-06-01] MEDS ORDERED: ONDANSETRON 4 MG/2 ML VIAL IVP PRN (17:20)
--- NOTE | 2019-06-01 17:44 | NUR ---
NOTIFIED MD PT STATED SHE CAN NOT BREATH. O2 SATS 99%-100%. ALSO REMIND MD REGARDING ABG RESULTS.
[2019-06-01] MEDS ORDERED: SODIUM BICARBONATE 8.4% 100 MEQ in DEXTROSE 5% 1,000 ML IV SCH (17:45)
--- NOTE | 2019-06-01 17:49 | NUR ---
CALLED LAB FOR BLOOD CULTURE.
[2019-06-01] MEDS ORDERED: PREN-380 PO (17:55)
[2019-06-01] MEDS ORDERED: cefTRIAXone 1,000 MG in LIDOCAINE MPF 1% 2.1 ML IM ONE (17:55)
[2019-06-01 17:58] LABS: LYMPHOCYTES % (MANUAL) 6 % (20-46); MONOCYTES % (MANUAL) 7 % (5-12)
--- NOTE | 2019-06-01 18:20 | NUR ---
TRANSFERRED PT FROM ER TO ICU BY KYRIE. PT DROWSY BUT ABLE TO ANSWER QUESTIONS. BOYFRIEND WITH PT,ALL PERSONAL BELONGINGS WITH PT. BEDSIDE MONITOR SHOWS HR 128, RR 30, SPO2 =99%. BP 142/85.
--- NOTE | 2019-06-01 18:25 | NUR ---
DR. BROCK CAME IN TO SEE PATIENT AT BEDSIDE, WILL FOLLOW UP WITH NEW ORDER.
--- NOTE | 2019-06-01 18:50 | NUR ---
PT'S MOTHER PRESENT TO BEDSIDE. MOTHER STATED PT HAS DM , PT DID TAKE MEDS FOR DM BUT NOT ANY MORE. " SHE DOES NOT LIKE MEDS". PT'S MOTHER CAN NOT REMEMBER WHICH TIME WAS THE LAST DAY PT TOOK MEDS FOR DM. PT'S MOTHER ALSO STATED PT WENT URGENT CARE 1 WEEK AGO, URGENT CARE PROVIDER TOLD HER SHE HAD VERY BAD INFECTION, TOLD HER TO COME TO ER BUT SHE DID NOT COME UNTIL TODAY.
[2019-06-01] MEDS: BLOOD GLUCOSE MONITORING 1 DEV DEV FS SCH ×5 (19:00→23:00)
--- NOTE | 2019-06-01 19:10 | NUR ---
ENDORSED PT TO PM SHIFT RN. PT VITALS HR 120. BP 132/82, RR 30, O2 SATS 100%. Addendum: 06/01/19 at 1915 by Hank Cabello RN DR. BROCK IN UNIT, MADE AWARE.
--- NOTE | 2019-06-01 19:30 | NUR ---
RECEIVED PT FROM DAY SHIFT RESTING IN BED. RESPONDS TO VERBAL STIMULI. DENIES PAIN UPON QUESTIONING. FLACC 0. FAMILY AT BEDSIDE. PERRL. O2 RUNNING @ 2LPM VIA NC. SPO2 @ 98-100. IV SITES PATENT TO RT AC AND LT AC, 1 L INFUSING D5 1/2 NS WITH 40 MEQ, NS @ 250ML/HR, SODIUM BICARB IN D5 1/2 NS @ 100 ML/HR. SINUS TACH ON MONITOR 120-130 BPM. + S1, S2 UPON AUSCULTATION. BOWEL SOUNDS ACTIVE X4. ABDOMEN SOFT, NON-DISTENDED, NON-TENDER. SKIN WARM, DRY AND INTACT. RBS 415 @ THIS TIME. SAFETY PRECAUTIONS IN PLACE. BED LOW AND LOCKED. CALL LIGHT LEFT WITHIN REACH. WILL CONTINUE TO MONITOR.
[2019-06-01 20:00] VITALS: BP 136/83
[2019-06-01 21:00] VITALS: BP 141/81
[2019-06-01 21:07] LABS: MAGNESIUM 1.9 mg/dL (1.8-2.4)
[2019-06-01 21:10] LABS: CREATININE 0.8 mg/dL (0.6-1.3); POTASSIUM 3.3 mmol/L (3.5-5.1)
[2019-06-01 21:20] LABS: CARBON DIOXIDE 2.3 mmol/L (21-32)
[2019-06-01 21:22] LABS: PHOSPHORUS 3.3 mg/dL (2.5-4.9)
[2019-06-01 21:29] LABS: BARBITURATE, URINE NEGATIVE ng/ml (NEG <=200); BENZODIAZEPINE, URINE NEGATIVE ng/mL (NEG <=200); CANNABINOID, URINE NEGATIVE ng/mL (NEG <=50); COCAINE, URINE POSITIVE ng/mL (NEG <=300); OPIATE, URINE NEGATIVE ng/mL (NEG <=2000); PHENCYCLIDINE SCREEN,URINE NEGATIVE ng/mL (NEG <=25)
--- NOTE | 2019-06-01 21:30 | NUR ---
INSULIN R DRIP STARTED AT THIS TIME. EDUCATED PT ON S/S OF HYPOGLYCEMIA. DENIES PAIN. ALL NEEDS BEING MET. CALL LIGHT WITHIN WILL CONTINUE TO MONITOR.
[2019-06-01 22:00] VITALS: BP 127/83
--- NOTE | 2019-06-01 22:00 | NUR ---
D5 1/2 NS STOPPED AT THIS TIME. SODIUM BICARB IVP, K RIDER 40 MEQ ORDERED. ADMINISTERED ORDERED WITHOUT INCIDENT. BED LOW AND LOCKED. WILL CONTINUE TO MONITOR FOR CHANGES.
[2019-06-01] MEDS ORDERED: SODIUM BICARBONATE 8.4% PFS 50 MEQ/50 ML SYR IVP SCH (22:30)
[2019-06-01 23:00] VITALS: BP 112/63
[2019-06-01] MEDS ORDERED: KCL 20 MEQ/WATER INJ PREMIX 200 ML IV SCH (23:00)
[2019-06-02] VITALS (24 sets, daily range): BP systolic 90–134; BP diastolic 40–82
--- NOTE | 2019-06-02 | NUR ---
REPOSITIONED PT. PAULINE-CARE PROVIDED. DENIES PAIN. FLACC 0. ALL NEEDS BEING MET. WILL CONT TO MONITOR.
[2019-06-02 00:35] LABS: ANION GAP 31.4 (8-16); CREATININE 0.9 mg/dL (0.6-1.3)
[2019-06-02 00:39] LABS: MAGNESIUM 1.9 mg/dL (1.8-2.4); PHOSPHORUS 1.2 mg/dL (2.5-4.9)
[2019-06-02] MEDS: BLOOD GLUCOSE MONITORING 1 DEV DEV FS SCH ×24 (01:00→23:32)
[2019-06-02 01:43] LABS: CARBON DIOXIDE 6.8 mmol/L (21-32); POTASSIUM 2.2 mmol/L (3.5-5.1)
--- NOTE | 2019-06-02 02:00 | NUR ---
PT REMOVED IV TO RT AND LT AC. REPLACED LINES TO RT FA 20G AND LT HAND 22G. TOLERATED WELL. NO C/O PAIN. SAFETY PRECAUTIONS REMAIN IN PLACE WITH BED LOW AND LOCKED. CALL LIGHT WITHIN REACH. WILL CONTINUE TO MONITOR .
[2019-06-02 05:02] LABS: ANION GAP 25.4 (8-16)
[2019-06-02 05:05] LABS: MAGNESIUM 1.7 mg/dL (1.8-2.4)
[2019-06-02 05:09] LABS: CARBON DIOXIDE 9.7 mmol/L (21-32); POTASSIUM 2.1 mmol/L (3.5-5.1)
[2019-06-02 05:10] LABS: PHOSPHORUS 0.7 mg/dL (2.5-4.9)
[2019-06-02] MEDS ORDERED: DEXT 5% / NACL 0.45% 1,000 ML IV SCH ×2 (05:30→07:25)
--- NOTE | 2019-06-02 05:38 | NUR ---
PHONE CALL FROM DR GOODMAN; NOTIFIED OF CRITICAL LABS; NEW ORDER TO GIVE 120 MEQ K RIDER NOW.ORDERED
[2019-06-02] MEDS ORDERED: KCL 20 MEQ/WATER INJ PREMIX 200 ML IV SCH (06:00)
[2019-06-02 06:03] LABS: HEMATOCRIT 41.1 % (36-48); HEMOGLOBIN 14.2 g/dL (12.0-16.0); MEAN CORPUSCULAR HEMOGLOBIN 31 pg (27-31); MEAN CORPUSCULAR HGB CONC 35 g/dL (33-37); MEAN CORPUSCULAR VOLUME 89.4 fL (80-94); PLATELET COUNT (AUTO) 457 K/uL (140-450); RED BLOOD CELL COUNT(AUTO) 4.59 MIL/uL (4.20-5.40); RED CELL DISTRIBUTION WIDTH 13.1 % (11.6-13.7); WHITE BLOOD COUNT (AUTO) 24.3 K/uL (4.8-10.8)
--- NOTE | 2019-06-02 06:30 | NUR ---
DR BROCK AT BEDSIDE AT THIS TIME. UPDATED ON PT STATUS.
--- NOTE | 2019-06-02 07:10 | NUR ---
RECEIVED PT FROM COMMERCIAL ENGINEER RN. PT IS RESTING BED, AOX4. DENIES PAIN, DENIES NAUSEA AND VOMITING. PERRLA. NO S/S OF DISTRESS ON RM AIR. O2 SAT 99%. IV CATH TO LEFT HAND 22G AND R FA 20G, BOTH PATENT, AND INTACT. INSULIN DRIP RUNNING AT 3.5ML/HR AND D5 1/2 NS AT 150ML/HR. K RIDER AT 10MEQ/HR. SINUS TACH ON MONITOR. LUNG SOUNDS CLEAR. BOWEL SOUNDS ACTIVE X4. ABDOMEN SOFT, NON-TENDER. SKIN WARM, DRY AND INTACT. SAFETY PRECAUTIONS IN PLACE. BED LOCKED IN LOWEST POSITION. CALL LIGHT WITHIN REACH. WILL CONTINUE TO MONITOR.
[2019-06-02 07:34] LABS: LYMPHOCYTES % (MANUAL) 2 % (20-46); MONOCYTES % (MANUAL) 7 % (5-12)
--- NOTE | 2019-06-02 08:13 | NUR ---
PATIENT HAS BEEN SCREENED AND CATEGORIZED HIGH NUTRITION RISK. PATIENT WILL BE SEEN WITHIN 1-2 DAYS OF ADMISSION. 06/02/19-06/03/[address]
[2019-06-02] MEDS ORDERED: NACL 0.9% 1,000 ML IV SCH (08:20)
[2019-06-02] MEDS ORDERED: NACL IV SCH ×2 (08:30→17:00)
[2019-06-02] MEDS ORDERED: POTASSIUM PHOSPHATE IV SCH ×2 (08:30→17:00)
[2019-06-02 09:24] LABS: ANION GAP 23.9 (8-16); CREATININE 0.8 mg/dL (0.6-1.3)
[2019-06-02 09:27] LABS: MAGNESIUM 1.7 mg/dL (1.8-2.4)
[2019-06-02 09:29] LABS: CARBON DIOXIDE 8.1 mmol/L (21-32); PHOSPHORUS 0.5 mg/dL (2.5-4.9)
--- NOTE | 2019-06-02 09:45 | NUR ---
ASSISTED PT TO BEDSIDE COMMODE. PT TOLERATED WELL. BM X1, FORMED BROWN STOOL
[2019-06-02] MEDS ORDERED: KCL 20 MEQ/WATER INJ PREMIX 100 ML IV SCH (10:00)
[2019-06-02] MEDS: POTASSIUM CHL 20 MEQ/NACL 0.9% 1,000 ML IV SCH ×3 (10:43→20:41)
[2019-06-02] MEDS: INSULIN REGULAR, HUMAN 100 UNIT in NACL 0.9% 100 ML IV SCH ×2 (10:47)
[2019-06-02] MEDS: POTASSIUM CHL 20 MEQ/D5-1/2NS 1,000 ML IV SCH ×3 (11:22→23:33)
--- NOTE | 2019-06-02 12:20 | NUR ---
PT EATING LUNCH, AT BEDSIDE HELPING PT.
[2019-06-02] MEDS ORDERED: LIDOCAINE MPF IV SCH (13:00)
[2019-06-02] MEDS ORDERED: POTASSIUM CHLORIDE IV SCH (13:00)
[2019-06-02] MEDS ORDERED: NACL 0.9% IV SCH (13:00)
[2019-06-02 13:28] LABS: ANION GAP 21.4 (8-16); CARBON DIOXIDE 11.1 mmol/L (21-32); CREATININE 0.9 mg/dL (0.6-1.3)
[2019-06-02 13:31] LABS: MAGNESIUM 1.5 mg/dL (1.8-2.4)
[2019-06-02 13:34] LABS: POTASSIUM 2.5 mmol/L (3.5-5.1)
[2019-06-02 13:36] LABS: PHOSPHORUS 0.8 mg/dL (2.5-4.9)
[2019-06-02] MEDS ORDERED: MAG SULF 2000 MG/WATER PREMIX 50 ML IV SCH (15:00)
--- NOTE | 2019-06-02 15:30 | NUR ---
MADE DR BROCK AWARE THAT PT COUGH MORE FREQ AND HAS TACHYPNEA. DR BROCK ORDERED ROBITUSSIN PRN AND ALBUTEROL PRN.
--- NOTE | 2019-06-02 15:39 | NUR ---
06/02/19 RD INITIAL ASSESSMENT COMPLETED PLEASE REFER TO NUTRITION ASSESSMENT UNDER CARE ACTIVITY FOR ESTIMATED NUTRITIONAL NEEDS. 1. CONTINUE [facility] 60 GM DIET TOLERATED 2. RD WILL PROVIDE [facility] NUTRITION EDUCATION TO PT 3. RD TO FOLLOW-UP 2-3 DAYS, HIGH RISK [address]RI[address]TA LOPE[address]
[2019-06-02] MEDS ORDERED: ALBUTEROL 0.083% 2.5 MG/3 ML NEBU INH PRN (15:40)
[2019-06-02] MEDS ORDERED: guaiFENesin 20 MG/ML UDC PO PRN (15:40)
[2019-06-02 16:45] LABS: ANION GAP 19.4 (8-16); CARBON DIOXIDE 13.1 mmol/L (21-32); CREATININE 0.7 mg/dL (0.6-1.3); POTASSIUM 3.5 mmol/L (3.5-5.1)
[2019-06-02 16:49] LABS: MAGNESIUM 2.5 mg/dL (1.8-2.4)
[2019-06-02 16:52] LABS: PHOSPHORUS 0.8 mg/dL (2.5-4.9)
--- NOTE | 2019-06-02 16:57 | NUR ---
[place] assessment/discharge plan Name: [facility] Relationship: brother Pre-Admission Living Arrangements: Lives with Other Other: family Prior ADL Independent Current Home Health Name/Tel: N/A Current DME/02 Name/Tel: N/A Current Hospice Name/Tel: N/A Current Dialysis Name/Tel: N/A Healthcare Decision Maker: Patient Advance Directive No Information Taught: Community Resources Person Taught: Patient Teaching Tools: Community Resources Verbal Factors Affecting Learning: None Participation Level: Active Evaluation: Gestures Understanding Verbalizes Understanding Educator: [place] Rosenthal Discipline: Case Mgt/Social Svcs Tentative Discharge Plan Summary: Patient is a 28 year old female admitted for DKA. I met with patient at bedside. Patient alert and oriented x4. Patient lives at home with her family and plans to return home upon discharge. Patient goes to [facility] for medical care. She denied hx of mental health. She denied alcohol/substance abuse. I provided her with education on [email or web address] for community resources. She does not have any questions/concerns at this time. Garden Worker and/or Web Marketing Assistant will follow up as needed. Signature: [place] Rosenthal Date: Jun 02, 2019
--- NOTE | 2019-06-02 19:45 | NUR ---
RECEIVED PT FROM DAY SHIFT RESTING IN BED. A/O X4, VERBALLY RESPONSIVE. DENIES PAIN UPON QUESTIONING. FAMILY AT BEDSIDE. PERRL. IV SITES PATENT TO RT FA, 20G, AND LT HAND 22G. NS WITH K-RIDER 20 MEQ, NS @ 200ML/HR, REGULAR INSULIN DRIP @ 7ML/HR. SINUS TACH ON MONITOR 101-110 BPM. + S1, S2 UPON AUSCULTATION. BOWEL SOUNDS ACTIVE X4. ABDOMEN SOFT, NON-DISTENDED, NON-TENDER. CARVER IN PLACE DRAINING CLEAR, YELLOW, URINE TO GRAVITY. SKIN WARM, DRY AND INTACT. RBS 256 @ THIS TIME. SAFETY PRECAUTIONS IN PLACE. BED LOW AND LOCKED. CALL LIGHT LEFT WITHIN REACH. WILL CONTINUE TO MONITOR.
[2019-06-02 20:58] LABS: ANION GAP 19.1 (8-16); CARBON DIOXIDE 14.9 mmol/L (21-32); CREATININE 0.8 mg/dL (0.6-1.3)
--- NOTE | 2019-06-02 21:00 | NUR ---
INDWELLING URINARY CATHETER REMOVED AT THIS TIME. TOLERATED WELL.
[2019-06-02 21:02] LABS: MAGNESIUM 2.1 mg/dL (1.8-2.4); PHOSPHORUS 1.3 mg/dL (2.5-4.9)
--- NOTE | 2019-06-02 22:00 | NUR ---
ABLE TO VOID WITHOUT DIFFICULTY. APPROX 300CC CLEAR, YELLOW, URINE, VIA BEDSIDE COMMODE. NO C/O PAIN OR RETENTION NOTED. SAFETY PRECAUTIONS REMAIN IN PLACE. BED LOW AND LOCKED. CALL LIGHT WITHIN REACH.
[2019-06-03] VITALS (23 sets, daily range): BP systolic 91–135; BP diastolic 45–80
--- NOTE | 2019-06-03 | NUR ---
ORAL CARE PROVIDED. REPOSITIONED WITH PRESSURE AREAS OFFLOADED. PERICARE PROVIDED. SAFETY PRECAUTIONS REMAIN IN PLACE. BED LOW AND LOCKED WITH SIDE RAILS UP. CALL LIGHT WITHIN REACH. WILL CONTINUE TO MONITOR
[2019-06-03] MEDS: BLOOD GLUCOSE MONITORING 1 DEV DEV FS SCH ×24 (00:29→23:11)
[2019-06-03 00:43] LABS: ANION GAP 19.6 (8-16); CREATININE 0.6 mg/dL (0.6-1.3)
[2019-06-03] MEDS ORDERED: ACETAMINOPHEN 325 MG TAB ONE (00:45)
--- NOTE | 2019-06-03 00:45 | NUR ---
C/O HEADACHE @ 5/10 PAIN ON ADULT SCALE. VSS. REQUESTING TYLENOL. MD NOTIFIED. NEW ORDERS OBTAINED AND IMPLEMENTED.
[2019-06-03 00:54] LABS: PHOSPHORUS 1.2 mg/dL (2.5-4.9)
[2019-06-03 00:55] LABS: POTASSIUM 2.6 mmol/L (3.5-5.1)
--- NOTE | 2019-06-03 01:00 | NUR ---
MEDICATED WITH PRN TYLENOL ORDERED. ICE PACK PROVIDED. NO ASE NOTED. VSS. PT RESTING IN BED, IN NO ACUTE DISTRESS. SAFETY PRECAUTIONS REMAIN IN PLACE. BED LOW AND LOCKED. CALL LIGHT WITHIN REACH. WILL CONTINUE TO MONITOR.
[2019-06-03] MEDS: POTASSIUM CHL 20 MEQ/NACL 0.9% 1,000 ML IV SCH ×5 (01:15→20:39)
[2019-06-03] MEDS ORDERED: KCL 20 MEQ/WATER INJ PREMIX 100 ML IV SCH (01:45)
[2019-06-03] MEDS: POTASSIUM CHLORIDE 10 MEQ TABER PO SCH ×3 (02:06→09:35)
[2019-06-03] MEDS: POTASSIUM CHL 20 MEQ/D5-1/2NS 1,000 ML IV SCH ×3 (02:08→19:25)
--- NOTE | 2019-06-03 04:00 | NUR ---
DENIES PAIN @ THIS TIME. BED BATH GIVEN. CATH CARE PROVIDED. REPOSITIONED WITH HOB @ 45 DEGREES AND PRESSURE AREAS OFFLOADED. SAFETY PRECAUTIONS REMAIN IN PLACE. BED LOW AND LOCKED. CALL LIGHT WITHIN REACH. WILL CONTINUE TO MONITOR.
--- NOTE | 2019-06-03 06:00 | NUR ---
ASSISTED PT TO BEDSIDE COMMODE WITHOUT INCIDENT. VOIDED APPROX 400 ML CLEAR, YELLOW URINE. VSS. DENIES PAIN. ALL OTHER NEEDS BEING MET. SAFETY PRECAUTIONS REMAIN IN PLACE. WILL CONTINUE TO MONITOR.
[2019-06-03 07:04] LABS: PHOSPHORUS 1.6 mg/dL (2.5-4.9)
[2019-06-03] MEDS: guaiFENesin 20 MG/ML UDC PO PRN ×2 (07:24→14:09)
--- NOTE | 2019-06-03 07:30 | NUR ---
RECEIVED BEDSIDE REPORT FROM PM SHIFT RN. PT AWAKE ,ALERT. ON RA, NO S/S OF RESPIRATORY DISTRESS NOTED. BEDSIDE MONITOR SHOWS ST-SR. PT HAS IV TO LEFT HAND # 22 RUNNING INSULIN DRIP AT 3.5 CC/HR AND RIGHT FA RUNNING D5 1/2 NS 20 MEQ KCL AT 150 CC/HR. PT ABLE TO MOVE HER SELF, INTRODUCED MYSELF, POC EXPLAINED , PT VERBALIZED UNDERSTANDING, CALL LIGHT IN REACH, WILL CONTINUE TO MONITOR.
[2019-06-03 07:36] LABS: ANION GAP 19.4 (8-16); CARBON DIOXIDE 13.5 mmol/L (21-32); CREATININE 0.6 mg/dL (0.6-1.3)
[2019-06-03 07:37] LABS: POTASSIUM 2.9 mmol/L (3.5-5.1)
--- NOTE | 2019-06-03 08:40 | NUR ---
ASSISTED PT TO USE BEDSIDE COMMODE. PT HAD SOFT BM.
[2019-06-03] MEDS: INSULIN REGULAR, HUMAN 100 UNIT in NACL 0.9% 100 ML IV SCH ×2 (08:54)
[2019-06-03] MEDS ORDERED: POTASSIUM PHOSPHATE 30 MM in NACL 0.9% 500 ML IV SCH (09:15)
--- NOTE | 2019-06-03 10:20 | NUR ---
PT BS >200, PER PROTOCOL, CHANGE INSULIN DRIP FROM 0.05 UNITS/KG/HR (3.5 CC/HR) TO 0.1 UNITS/KG/HR ( 7 CC/HR). PER ORDER CHANGE IVF FROM D5 0.9 NS 20 MEQ KCL 150 CC/HR TO 0.9 NS 20 MEQ @ 200 CC/HR. CARRIED OUT.
[2019-06-03 10:42] LABS: BASOPHILS # (AUTO) 0.1 K/uL (0.00-0.22); BASOPHILS % (AUTO) 0.5 % (0.0-2.0); EOSINOPHILS % (AUTO) 0.1 % (0.0-4.0); HEMOGLOBIN 11.8 g/dL (12.0-16.0); LYMPHOCYTES # (AUTO) 1.5 K/uL (2.5-16.5); LYMPHOCYTES % (AUTO) 7.6 % (20.5-51.1); MEAN CORPUSCULAR HEMOGLOBIN 30 pg (27-31); MEAN CORPUSCULAR HGB CONC 35 g/dL (33-37); MEAN CORPUSCULAR VOLUME 87.6 fL (80-94); MONOCYTES # (AUTO) 1.9 K/uL (0.8-1.0); MONOCYTES % (AUTO) 9.8 % (1.7-9.3); NEUTROPHILS # (AUTO) 16.2 K/uL (1.8-7.7); PLATELET COUNT (AUTO) 381 K/uL (140-450); RED BLOOD CELL COUNT(AUTO) 3.89 MIL/uL (4.20-5.40); RED CELL DISTRIBUTION WIDTH 12.8 % (11.6-13.7); WHITE BLOOD COUNT (AUTO) 19.8 K/uL (4.8-10.8)
[2019-06-03 10:45] LABS: ANION GAP 20.2 (8-16); CARBON DIOXIDE 14.8 mmol/L (21-32); CREATININE 0.6 mg/dL (0.6-1.3)
[2019-06-03 10:52] LABS: PHOSPHORUS 1.4 mg/dL (2.5-4.9)
[2019-06-03] MEDS: ACETAMINOPHEN 325 MG TAB PO PRN ×2 (11:59→20:38)
--- NOTE | 2019-06-03 12:06 | NUR ---
PT C/O HEADACHE, TYLENOL 650 MG GIVEN ORDERED. ASSISTED PT TO USE BEDSIDE COMMODE. PT HAD LOOSE BM, WILL MONITOR.
[2019-06-03 13:50] LABS: ANION GAP 19.5 (8-16); CARBON DIOXIDE 14.7 mmol/L (21-32); CREATININE 0.6 mg/dL (0.6-1.3); POTASSIUM 3.2 mmol/L (3.5-5.1)
[2019-06-03 14:01] LABS: PHOSPHORUS 2.2 mg/dL (2.5-4.9)
--- NOTE | 2019-06-03 16:15 | NUR ---
ASSISTED PT TO BEDSIDE COMMODE. PT HAD ONE TIME WATERY BM. CLEANED PT, ASSISTED PT BACK TO BED.
--- NOTE | 2019-06-03 18:50 | NUR ---
ASSISTED PT TO BEDSIDE COMMODE. PT VOIDS AND HAD SMALL AMOUNT OF SOLID BM.
--- NOTE | 2019-06-03 19:10 | NUR ---
ENDORSED PT TO PM SHIFT RN, VITALS STABLE, BOYFRIEND AT BEDSIDE.
--- NOTE | 2019-06-03 19:25 | NUR ---
entered room with day shift nurse. patient in bed sitting up. aaox4. room air. perrla. brisk rxn. able to make needs known. able to obey commands. denies pain. left fa periph. iv site. right fa periph. iv site. running insulin 3.5ml/hr. and d5 1/2 ns at 150 ml/hr. patient has potassium phosphate running as ordered. intact skin. able to get up to use bedside commode. boyfriend present at bedside. vss. call light within reach. no sob or distress noted. ccho diet. states been having "pee/diarrhea mix" day nurse states noted potassium pill in the bedside commode. st. regular hr. lungs clear. bowel sounds active in all 4 quad. patient states at this time. pulses felt in all 4 quad. normal skin color. will continue to monitor. denies any vaginal bleeding at this time. able to move around in bed. watching tv with boyfriend. no questions at this time.
--- NOTE | 2019-06-03 20:45 | NUR ---
PATIENT WATCHING TV WITH BOYFRIEND. TYLENOL GIVEN ORDERED WITH [place]. STATES HAVE MILD HEADACHE D/T COUGHING BUT REFUSES ROBITUSSIN D/T BELIEFS OF IT GIVING HER BODY DIARRHEA. BM LOOSE/WITH URINE IN BEDSIDE COMMODE.PT HAS CHUX PRESENT ON BEDPAN/BEDSIDE COMMODE WELL. MOVED BACK AND FORTH TO BED WITH STANDBY ASSISTANCE WITHOUT ANY INJURY. VSS. NO SOB OR DISTRESS NOTED. WILL CONTINUE TO MONITOR.
--- NOTE | 2019-06-03 21:45 | NUR ---
PATIENT STATES HEADACHE BETTER D/T TYLENOL. STILL REFUSES ROBITUSSIN. INTERMITT. COUGH PRESENT. DR. EDWARDS PRESENT AT BEDSIDE. UPDATED MD THAT PATIENT HAS BAD MIX OF BM/URINE AND UNABLE TO DIFFERENTIATE [facility] ER PATIENT. STATES NURSE NOTICED POTASSIUM PILL IN THE BEDSIDE COMMODE URINE / BM BEDPAN. STATES WILL CONTINUE TO MONITOR AT THIS TIME. NO SCENT FROM BM. DENIES PAIN DENIES CRAMPING. MD AWARE. AFEBRILE. VSS. NO SOB NOTED. DENIES BLEEDING. WILL CONTINUE TO MONITOR.
--- NOTE | 2019-06-03 23:05 | NUR ---
entered room to take bs. patient states will try to sleep at this time. boyfriend still present. no pain noted. refuses robitussin at this time. vss. no sob noted. will continue to monitor.
[2019-06-04] VITALS (15 sets, daily range): BP systolic 86–131; BP diastolic 45–71
[2019-06-04] MEDS: BLOOD GLUCOSE MONITORING 1 DEV DEV FS SCH ×19 (00:03→23:58)
--- NOTE | 2019-06-04 00:22 | NUR ---
PATIENT UP FOR BEDSIDE COMMODE WITH ASSISTANCE OF BF AND STANDBY NURSE. PATIENT MOVED BACK AND FORTH WITHOUT INJURY. NOTED URINE AND 2ND BEDPAN USED FOR SOFT BROWN STOOL. STATES NO PAIN. NO BLEEDING NOTED. CHUX IN BEDPAN. UNABLE TO MEASURE. NO SOB OR DISTRESS NOTED. PATIENT ABLE TO MAKE NEEDS KNOWN. OBEYS COMMANDS. WILL CONTINUE TO MONITOR.
--- NOTE | 2019-06-04 01:00 | NUR ---
entered room to take bs. bf present watching tv at bedside. patient lying on side. vss. no sob or distress noted. will continue to monitor at this time.
[2019-06-04] MEDS: POTASSIUM CHL 20 MEQ/D5-1/2NS 1,000 ML IV SCH ×4 (02:13→20:50)
[2019-06-04] MEDS: POTASSIUM CHL 20 MEQ/NACL 0.9% 1,000 ML IV SCH ×3 (02:13→13:59)
--- NOTE | 2019-06-04 03:11 | NUR ---
entered room to take blood sugar. patient sleeping with boyfriend present at bedside. aaox4. states "im fine" given hand to assist in bs check. denies needing anything at this time. will continue to monitor. vss. no sob or distress noted.
--- NOTE | 2019-06-04 05:20 | NUR ---
patient got up to use bedside commode with bf assistance. no injuries noted. used 2 bedpans. small amount of bm in one and urine in both. no abnormal smells noted. vss. able to make needs known. refused morning care at this time. states will ask if needs it but wants to sleep more. will continue to monitor.
--- NOTE | 2019-06-04 07:30 | NUR ---
RECEIVED BEDSIDE REPORT FROM PM SHIFT RN. PT AWAKE ,ALERT. ON RA, NO S/S OF RESPIRATORY DISTRESS NOTED. BEDSIDE MONITOR SHOWS SR. PT HAS IV TO LEFT FA# 22 RUNNING INSULIN DRIP AT 3.5 CC/HR AND RIGHT FA RUNNING D5 1/2 NS 20 MEQ KCL AT 150 CC/HR. PT ABLE TO MOVE HER SELF, INTRODUCED MYSELF, POC EXPLAINED , PT VERBALIZED UNDERSTANDING, CALL LIGHT IN REACH, WILL CONTINUE TO MONITOR. PER PM NURSE AND PT, PT DID NOT HAVE DIARRHEA DURING PAY AGENT.
[2019-06-04] MEDS ORDERED: PROMETH/CODEINE 6.25-10MG/5ML 5 ML UDC PO PRN (08:10)
--- NOTE | 2019-06-04 08:12 | NUR ---
CALLED , NOTIFIED PT HAS COUGH AND GAVE PT ROBITUSSIN WITH MILD HELP. PER DR. CARPIO, GIVE PT PHENERGAN/CODEINE 5ML Q 6HR PRN AND ORDER CBC, BMP, MG, K, PHOSPHORUS FOR PT. CARRIED OUT.
--- NOTE | 2019-06-04 08:40 | NUR ---
CALLED PT'S OB MD DR. VAN, VOICE MESSAGE LEFT REGARDING PT WENT TO BEDSIDE COMMODE ABOUT SEVERAL MINUTES AGO, SHE WIPED HERSELF WITH A LITTLE BIT BLOOD. PT DENIES CRAMPING OR OTHER DISCOMFORT. BOYFRIEND AT BEDSIDE. WILL F/U.
[2019-06-04 08:50] LABS: BASOPHILS # (AUTO) 0.1 K/uL (0.00-0.22); BASOPHILS % (AUTO) 0.5 % (0.0-2.0); EOSINOPHILS % (AUTO) 0.2 % (0.0-4.0); HEMATOCRIT 33.6 % (36-48); HEMOGLOBIN 11.6 g/dL (12.0-16.0); LYMPHOCYTES # (AUTO) 1.8 K/uL (2.5-16.5); LYMPHOCYTES % (AUTO) 13.7 % (20.5-51.1); MEAN CORPUSCULAR HEMOGLOBIN 31 pg (27-31); MEAN CORPUSCULAR HGB CONC 35 g/dL (33-37); MEAN CORPUSCULAR VOLUME 88.1 fL (80-94); MONOCYTES # (AUTO) 0.8 K/uL (0.8-1.0); MONOCYTES % (AUTO) 6.4 % (1.7-9.3); NEUTROPHILS # (AUTO) 10.1 K/uL (1.8-7.7); NEUTROPHILS % (AUTO) 79.2 % (42.2-75.2); PLATELET COUNT (AUTO) 387 K/uL (140-450); RED BLOOD CELL COUNT(AUTO) 3.82 MIL/uL (4.20-5.40); RED CELL DISTRIBUTION WIDTH 12.8 % (11.6-13.7); WHITE BLOOD COUNT (AUTO) 12.8 K/uL (4.8-10.8)
[2019-06-04] MEDS: INSULIN REGULAR, HUMAN 100 UNIT in NACL 0.9% 100 ML IV SCH ×2 (10:14)
[2019-06-04 10:15] LABS: CREATININE 0.7 mg/dL (0.6-1.3)
--- NOTE | 2019-06-04 10:15 | NUR ---
at bedside to assess pt. notified pt is , is it ok to use PHENERGAN/CODEINE. per dr. savage d/c PHENERGAN/CODEINE.
[2019-06-04 10:19] LABS: MAGNESIUM 1.7 mg/dL (1.8-2.4); PHOSPHORUS 2.7 mg/dL (2.5-4.9)
--- NOTE | 2019-06-04 11:14 | NUR ---
BS 208, INCREASED INSULIN DRIP FROM 3.5 CC/HR TO 7.0 CC/HR. ALSO CHANGED IV FLUID TO 0.9 NS 20 MEQ KCL AT 200 CC/HR.
--- NOTE | 2019-06-04 12:00 | NUR ---
BS 187. INSULIN DRIP CHANGED FROM 7 CC/HR TO 3.5 CC/HR.
[2019-06-04] MEDS ORDERED: MAGNESIUM OXIDE 400 MG TAB PO SCH (12:15)
--- NOTE | 2019-06-04 13:45 | NUR ---
called dr. ott again, voice message left.
[2019-06-04] MEDS: POTASSIUM CHLORIDE 20% 40 MEQ/15 ML UDC PO SCH ×2 (13:50→16:34)
[2019-06-04 14:23] LABS: ANION GAP 14.3 (8-16); CARBON DIOXIDE 23.9 mmol/L (21-32); CREATININE 0.7 mg/dL (0.6-1.3); POTASSIUM 3.2 mmol/L (3.5-5.1)
--- NOTE | 2019-06-04 14:57 | NUR ---
RECEIVED PHONE CALL FROM DR. VAN, NOTIFIED PT HAD A LITTLE BIT BLOOD WHILE PT WIPED HER SELF. RECEIVED ORDER TO ORDER 1 ST TRIMESTER US AND HCG SERUM.
[2019-06-04] MEDS ORDERED: INSULIN LANTUS 100 UNITS/ML 10 ML VIAL SUBQ SCH (15:29)
[2019-06-04] MEDS ORDERED: INSULIN NPH HUM/REG INSULIN HM 100 UNIT/ML 10 ML VIAL SUBQ SCH (15:45)
[2019-06-04] MEDS ORDERED: INSULIN LISPRO 100 UNITS/ML VIAL SUBQ SCH (16:00)
--- NOTE | 2019-06-04 16:09 | NUR ---
CALLED , UPDATED BMP. NOTIFIED DR. CARPIO ORDERED LANTUS 12 UNITS SUBQ, PER DR. FERREIRA, D/C LANTUS 12 UNITS SUBQ AND CHANGE TO HUMALOG 4 UNITS AND NPH 20 UNITS NOW, STOP IV INSULIN 20 MINUTES LATER AND CHECK BS Q4HRS, FOLLOW HUMALOG SLIDING SCALE Q 4 HRS. GIVE PT D51/2 NS WITH 20 MEQ KCL @ 150 CC/HR, WILL CARRY OUT.
[2019-06-04] MEDS ORDERED: INSULIN NPH HUMAN ISOPHANE 100 UNIT/ML VIAL SUBQ SCH (16:30)
[2019-06-04] MEDS ORDERED: BLOOD GLUCOSE MONITORING 1 DEV DEV FS SCH (16:30)
--- NOTE | 2019-06-04 16:45 | NUR ---
PT TOLD ME SHE HAD FORMED BM TODAY. NO LOOSE BM OR DIARRHEA.
--- NOTE | 2019-06-04 18:00 | NUR ---
PT TOLD ME SHE HAS CRAMPING AT THIS TIME, WIPED HERSELF WITH BLOOD. CHECKED HCG SERUM, NO REPORT YET BUT IN ORDER HX SHOWED COMPLETED, CALLED LAB TO CLARIFY, PER LAB CLS, THEY SAID THEY ADD MORNING BLOOD TO THE TEST, TOLD THEM TO DRAW NEW BLOOD TO CHECK HCG.
--- NOTE | 2019-06-04 19:05 | NUR ---
ENDORSED PT CARE , HCG REPORT AND US REPORT TO PM SHIFT RN AND CHARGE NURSE. ENSURE TO CALL OB MD . PT AWAKE, ALERT. VITAL STABLE.
--- NOTE | 2019-06-04 19:15 | NUR ---
CHANGE OF SHIFT REPORT AT BEDSIDE WITH DAY SHIFT NURSE NATTY. PATIENT AWAKE AND ALERT X4. BOYFRIEND AT BEDSIDE. PATIENT SITTING UP. STATES NO DIARRHEA TODAY. STATES MILD CRAMPING BUT DOES NOT FEEL LIKE A MISCARRIAGE. PATIENT STATES HAS HAD A MISCARRIAGE BEFORE. PATIENT STATES MILD BLEEDING ONLY WHEN WIPING BUT NOT IN URINE. DENIES PAIN. ROOM AIR. PERRLA BILATERALLY. HR REGULAR. SR-ST. RESP SYMMETR. AND UNLABORED. LUNG SOUNDS CLEAR. BOWEL SOUNDS ACTIVE. SKIN INTACT, PULSES PRESENT IN ALL 4 QUAD. AAOX4. ABLE TO OBEY COMMANDS. ABLE TO MAKE NEEDS KNOWN. SMILING. SPEAKING CLEARLY TO STAFF. DENIES NEEDING ANYTHING AT THIS TIME. WILL CONTINUE TO MONITOR.
--- NOTE | 2019-06-04 20:15 | NUR ---
BED RIZVI REMOVED FROM PATIENTS ROOM FROM PRIOR SHIFT. PATIENT STATES FORMED BM AND URINE TOGETHER IN BEDSIDE COMMODE. VSS. NO ABNORMAL SMELLS. NO SOB OR DISTRESS NOTED.
--- NOTE | 2019-06-04 20:31 | NUR ---
SPOKE WITH LAB ISELA, STATES HCG RESULT 8919 STILL HIGH BUT LOWER THAN PREVIOUS AM RESULT. WILL F/U WITH .
[2019-06-04] MEDS: INSULIN LISPRO SLIDING SCALE 100 UNITS/ML VIAL SUBQ PRN (20:49)
--- NOTE | 2019-06-04 21:00 | NUR ---
CALLED DR VAN WHEN RECEIVED LAB HCG RESULT 8918 . NOTIFIED HIM OF THE LAB RESULT. STATES PATIENT NOW DENIES CRAMPING. READ IMPRESSIONS RESULT OF THE ULTRASOUND TO MD. MD STATES "I'LL HAVE TO SPEAK WITH THE PATIENT." WILL NOTIFY PATIENT THAT MD WILL BE IN TO SPEAK WITH HER IN AM PER MD. Addendum: 06/05/19 at 0647 by Leticia Luke RN DR EDWARDS PRESENT AT BEDSIDE AND NOTIFIED OF ALL OF THESE THINGS. PATIENT STATES NO CRAMPING ANYMORE. NOTIFIED JERRY OF MILD INTERMITT. COUGH STILL. REFUSES CHANDA D/T "GIVING ME DIARRHEA". PATIENT SPOKE WITH MD WILL CONTINUE TO MONITOR. "CONTINUE ROCEPHIN" PER MD ORDERS
--- NOTE | 2019-06-04 21:06 | NUR ---
PATIENT REQUESTED TO USE BEDSIDE COMMODE. STILL ATTACHED TO MONITORS. BF ASSISTED IN PROCESS. NO INJURY DURING PROCESS. BEDPAN OF FORMED SOFT BM AND URINE NOTED. PATIENT DENIES CRAMPING AT THIS TIME. BACK IN BED SAFELY. VSS. TAPED UP SALINE LOCKED IVS.NO SOB OR DISTRESS NOTED. WILL CONTINUE TO MONITOR AT THIS TIME. BED RIZVI REMOVED FROM ROOM.
--- NOTE | 2019-06-04 22:49 | NUR ---
DR FERREIRA CALLED. ASKED WHAT BS WAS. NOTIFIED BS WAS 236 AT 1999. STATES TO GIVE 30 UNITS OF NPH TOMORROW AT 0900 SUB Q IN THE MORNING. READ BACK. AGREED. WILL PLACE ORDER IN PER ORDERS
[2019-06-05] VITALS (7 sets, daily range): BP systolic 82–102; BP diastolic 44–63
--- NOTE | 2019-06-05 | NUR ---
ENTERED PATIENTS ROOM. PATIENT ASLEEP. BF PRESENT AND ASLEEP IN A CHAIR ON THE SIDE OF BED. PATIENT GAVE ME HAND TO ASSIST IN BS CHECK. DENIES NEEDING ANYTHING AT THIS TIME. INSULIN HUMALOG GIVEN PER MD SLIDING SCALE ORDERS. 4 UNITS SUB Q GIVEN IN LEFT DELTOID. VSS. NO SOB NOTED. NO S/S OF DISTRESS NOTED.
[2019-06-05] MEDS: INSULIN LISPRO SLIDING SCALE 100 UNITS/ML VIAL SUBQ PRN ×3 (00:18→08:34)
--- NOTE | 2019-06-05 02:24 | NUR ---
PATIENT PUSHED CALL LIGHT TO NOTIFY THAT SHE WANTED TO USE THE BEDSIDE COMMODE. REQUESTED BF ASSIST. PATIENT STABLE TO MOVE TO BEDSIDE COMMODE. REFUSED NEEDING ANYTHING AT THIS TIME. MONITORING PATIENT VS ON MONITOR AND CHECKING FOR INJURY. VSS. NO SOB OR DISTRESS NOTED. AAOX4. ABLE TO MAKE NEEDS KNOWN. WILL CONTINUE TO MONITOR.
--- NOTE | 2019-06-05 02:39 | NUR ---
PATIENT ASSISTED BACK TO BED. BF PRESENT. NO INJURY NOTED. BM AND URINE BOTH IN BEDPAN. PATIENT STATES "IM OK AT THIS TIME". AAOX4. ABLE TO MAKE NEEDS KNOWN.
--- NOTE | 2019-06-05 04:04 | NUR ---
WHEN ENTERED ROOM, PATIENT SLEEPING. BF SLEEPING AT BEDSIDE. BS TAKEN. IVF CHANGED. PATIENT WENT BACK TO SLEEP. WILL CONTINUE TO MONITOR AT THIS TIME.
[2019-06-05] MEDS: BLOOD GLUCOSE MONITORING 1 DEV DEV FS SCH ×2 (04:06→08:36)
[2019-06-05] MEDS: POTASSIUM CHL 20 MEQ/D5-1/2NS 1,000 ML IV SCH (04:07)
--- NOTE | 2019-06-05 04:22 | NUR ---
LAB AT PATIENT BEDSIDE. TOLERATING WELL. VSS. NO SOB OR DISTRESS NOTED.
[2019-06-05 06:00] LABS: BASOPHILS # (AUTO) 0.1 K/uL (0.00-0.22); BASOPHILS % (AUTO) 0.7 % (0.0-2.0); EOSINOPHILS # (AUTO) 0.1 K/uL (0-0.4); EOSINOPHILS % (AUTO) 0.5 % (0.0-4.0); HEMATOCRIT 29.3 % (36-48); HEMOGLOBIN 10.1 g/dL (12.0-16.0); LYMPHOCYTES # (AUTO) 2.1 K/uL (2.5-16.5); LYMPHOCYTES % (AUTO) 20.3 % (20.5-51.1); MEAN CORPUSCULAR HEMOGLOBIN 31 pg (27-31); MEAN CORPUSCULAR HGB CONC 35 g/dL (33-37); MEAN CORPUSCULAR VOLUME 89.1 fL (80-94); MONOCYTES % (AUTO) 9.9 % (1.7-9.3); NEUTROPHILS # (AUTO) 7.1 K/uL (1.8-7.7); NEUTROPHILS % (AUTO) 68.6 % (42.2-75.2); PLATELET COUNT (AUTO) 323 K/uL (140-450); RED BLOOD CELL COUNT(AUTO) 3.29 MIL/uL (4.20-5.40); RED CELL DISTRIBUTION WIDTH 12.7 % (11.6-13.7); WHITE BLOOD COUNT (AUTO) 10.4 K/uL (4.8-10.8)
[2019-06-05 06:08] LABS: ALBUMIN 1.7 g/dL (3.4-5.0); ANION GAP 14.4 (8-16); CARBON DIOXIDE 24.1 mmol/L (21-32); CREATININE 0.6 mg/dL (0.6-1.3); POTASSIUM 3.5 mmol/L (3.5-5.1); TOTAL BILIRUBIN 0.4 mg/dL (0.0-1.0)
--- NOTE | 2019-06-05 06:47 | NUR ---
PATIENT LYING IN BED. NO SOB NOTED NO S/S OF DISTRESS NOTED. BF STILL AT BEDSIDE. STABLE CONDITION. WILL ENDORSE TO DAY SHIFT ABOUT NPH ORDER FROM HANNA ABOUT FREQUENCY OF ORDER.
--- NOTE | 2019-06-05 07:25 | NUR ---
BEDSIDE REPORT RECEIVED FROM KITCHEN FOOD SERVER NURSE DEEPA, PT AAOX4,RESP EVEN UNLABORED ON RA, SKIN WARM DRY COLOR WNL, VITALS STABLE ON MONITOR, D5 1/2NS AT 150ML/HR TO LEFT FA IV, RIGHT FA IV SL'D, SITES WNL, PT GETS UP TO BEDSIDE COMMODE WITH MINIMAL ASSIST, POC REVIEWED, PT DENIES PAIN OR DISCOMFORT, EXTRA TISSUE BOX PROVIDED PER REQUEST, DENIES OTHER NEEDS AT THIS TIME, CALL BAUER WITHIN REACH, SIDE RAILS UP, BED LOCKED IN LOW POSITION, ALL SAFETY MEASURES IN PLACE, WILL CONTINUE TO MONITOR.
--- NOTE | 2019-06-05 07:55 | NUR ---
DR SALAS AT BEDSIDE
--- NOTE | 2019-06-05 08:36 | NUR ---
DR VAN AT BEDSIDE
[2019-06-05] MEDS ORDERED: INSULIN NPH HUMAN ISOPHANE 100 UNIT/ML VIAL SUBQ ONE (09:00)
[2019-06-05] MEDS ORDERED: INSULIN LANTUS 100 UNITS/ML 10 ML VIAL SUBQ SCH (09:00)
--- NOTE | 2019-06-05 09:05 | NUR ---
PT UP OUT OF BED WITH MINIMAL ASSIST TO BEDSIDE COMMODE, VOIDED AND HAD A BM, PT REPORTS ONLY VAGINAL SPOTTING AND STREAKS WHEN WIPING.
--- NOTE | 2019-06-05 09:48 | NUR ---
AT BEDSIDE TO ASSESS PT.
--- NOTE | 2019-06-05 09:50 | NUR ---
DR CARPIO AT [facility]. Addendum: 06/05/19 at [facility] by Pratima Pollack RN PT TO DOWNGRADE TO MEDSURGE AND DISCHARGE PER DR CARPIO.
[2019-06-05] MEDS ORDERED: INSU100S22 SUBQ (10:38)
[2019-06-05] MEDS ORDERED: CEPH250C16 PO (10:39)
[2019-06-05] MEDS ORDERED: GUAI-1094 PO (10:40)
--- NOTE | 2019-06-05 11:45 | NUR ---
DC INSTRUCTIONS AND RX GIVEN AND EXPLAINED TO PT AND PT'S BOYFRIEND PAXTON, THEY VERBALIZED FULL UNDERSTANDING, DIABETES TEACHING, INSULIN INJECTION INSTRUCTIONS GIVEN, PT AND BOYFRIEND RETURN DEMONSTRATED WITH GOOD TECHNIQUE. ALL QUESTIONS ASKED AND ANSWERED, PT STATES SHE WILL GO EAT LUNCH NOW, 2 UNITS GIVEN PER SLIDING SCALE ORDER, PT UP OUT OF BED WITHOUT PROBLEM, AMBULATES WITH STEADY GAIT, DC HOME NOW WITH BOYFRIEND PAXTON.
== END 2019-06-05 11:45 | disposition home or self-care (01) | DRG 564 ==
LOC: MED 14:01 → MIC 17:26
PROVIDERS: ADMIT Internal Medicine; ATTEND Internal Medicine
DX: O03.87 Sepsis following complete or unspecified spontaneous abortion (principal); A41.9 Sepsis, unspecified organism; E11.10 Type 2 diabetes mellitus with ketoacidosis without coma; O03.89 Complete or unspecified spontaneous abortion with other complications; F14.10 Cocaine abuse, uncomplicated; J20.9 Acute bronchitis, unspecified; Z3A.01 Less than 8 weeks gestation of pregnancy; Z83.3 Family history of diabetes mellitus; Z79.4 Long term (current) use of insulin
CPT/HCPCS: 36415; 36600; 71045; 76801; 76817; 80048; 80053; 80305; 81001; 81025; 82150; 82803; 82948; 83036; 83605; 83690; 83735; 84100; 84132; 84702; 84703; 85025; 86886; 86900; 86901; 87040; 87086; 87804; 96361; 96365; 96375; 99291; G0480; J0456; J0696; J1815; J2001; J2405; J3475; J3480; J3490; J7030; J7060; Q0092

== ENCOUNTER 2019-06-22 16:09 | Observation (INO) | payer OTHER ==
[~2019-06-22] VITALS: Ht 162.6 cm; Wt 66.7 kg
[~2019-06-22 16:09] MED LIST changes: +CEPH250C16 PO; -GLUC-805 FS; +GUAI-1094 PO; -HUM SUBQ; +INSU100S22 SUBQ; -LANTUS SUBQ; -METF500T PO; +PREN-380 PO
[2019-06-22 16:24] VITALS: BP 139/85
--- NOTE | 2019-06-22 16:31 | NUR ---
PT TO CHAIR C
--- NOTE | 2019-06-22 16:35 | NUR ---
C/O PRODUCTIVE COUGH X BEGINING OF MAY PT DENIES PAIN. EXPIRATORY WHEEZING HEARD BILATERALLY. RR EVEN AND UNLABORED REFERRED FROM URGENT CARE FOR RULE OUT PE. PT DENIES CP. ON 98% RA. 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
--- NOTE | 2019-06-22 16:59 | NUR ---
KATIE Millard is evaluating the patient.
--- NOTE | 2019-06-22 16:59 | NUR ---
KATIE MAHAJAN AT CHAIR
[2019-06-22] MEDS ORDERED: ALBUTEROL 0.083% 2.5 MG/3 ML NEBU INH ONE (17:05)
--- NOTE | 2019-06-22 17:12 | NUR ---
Breathing treatment administered by respiratory therapist.
--- NOTE | 2019-06-22 17:28 | NUR ---
PT TO XRAY VIA WHEELCHAIR
--- NOTE | 2019-06-22 18:11 | NUR ---
REPORT TO ALMA ROSA WEATHERS
--- NOTE | 2019-06-22 18:11 | NUR ---
PT MOVED TO BED 3
[2019-06-22 18:57] LABS: BASOPHILS # (AUTO) 0.1 K/uL (0.00-0.22); BASOPHILS % (AUTO) 0.8 % (0.0-2.0); EOSINOPHILS # (AUTO) 0.1 K/uL (0-0.4); HEMATOCRIT 25.1 % (36-48); HEMOGLOBIN 8.4 g/dL (12.0-16.0); LYMPHOCYTES # (AUTO) 2.5 K/uL (2.5-16.5); MEAN CORPUSCULAR HEMOGLOBIN 29 pg (27-31); MEAN CORPUSCULAR HGB CONC 34 g/dL (33-37); MEAN CORPUSCULAR VOLUME 87.1 fL (80-94); MONOCYTES # (AUTO) 0.5 K/uL (0.8-1.0); MONOCYTES % (AUTO) 5.4 % (1.7-9.3); NEUTROPHILS # (AUTO) 6.5 K/uL (1.8-7.7); NEUTROPHILS % (AUTO) 66.8 % (42.2-75.2); PLATELET COUNT (AUTO) 645 K/uL (140-450); RED BLOOD CELL COUNT(AUTO) 2.88 MIL/uL (4.20-5.40); RED CELL DISTRIBUTION WIDTH 13.5 % (11.6-13.7); WHITE BLOOD COUNT (AUTO) 9.7 K/uL (4.8-10.8)
[2019-06-22 19:11] LABS: PROTHROMBIN TIME 10.1 secs (10.8-13.4)
[2019-06-22 19:16] LABS: ALBUMIN 2.5 g/dL (3.4-5.0); CARBON DIOXIDE 24.8 mmol/L (21-32); CREATININE 0.7 mg/dL (0.6-1.3); TOTAL BILIRUBIN 0.3 mg/dL (0.0-1.0)
[2019-06-22 19:30] LABS: POTASSIUM 2.8 mmol/L (3.5-5.1)
[2019-06-22] MEDS ORDERED: POTASSIUM CHLORIDE 10 MEQ TABER PO ONE (19:45)
--- NOTE | 2019-06-22 20:04 | NUR ---
PT TAKEN TO CT VIA WHEELCHAIR
[2019-06-22] MEDS ORDERED: NACL 0.9% 1,000 ML IV ONE (21:30)
[2019-06-22] MEDS ORDERED: cefTRIAXone 2,000 MG in DEXTROSE 5% 100 ML IV ONE (21:30)
[2019-06-22] MEDS ORDERED: CLINDAMYCIN 900 MG in DEXTROSE 5% 100 ML IV ONE (21:30)
[2019-06-22] MEDS ORDERED: cefTRIAXone 2,000 MG VIAL ONE (21:35)
[2019-06-22] MEDS ORDERED: ALBUTEROL 0.083% 2.5 MG/3 ML NEBU INH PRN (21:50)
[2019-06-22] MEDS ORDERED: DEXTROSE 50% 50 ML SYR IVP PRN (21:50)
[2019-06-22] MEDS ORDERED: ACETAMINOPHEN 325 MG TAB PO PRN (21:50)
[2019-06-22] MEDS ORDERED: HYDROcodone/APAP 5/325 MG 1 TAB TAB PO PRN ×2 (21:50)
[2019-06-22] MEDS ORDERED: ONDANSETRON 4 MG/2 ML VIAL IVP PRN (21:50)
[2019-06-22] MEDS ORDERED: INSULIN LISPRO SLIDING SCALE 100 UNITS/ML VIAL SUBQ PRN (21:50)
[2019-06-22] MEDS ORDERED: LORazepam 2 MG/ML VIAL IVP PRN (21:50)
[2019-06-22 22:20] VITALS: BP 131/79
--- NOTE | 2019-06-22 22:20 | NUR ---
RECEIVED PT FROM ER VIA [facility] ER NURSE GIVE A REPORT AT BED SIDE PT IS AAOX4 AMBULATORY COMPLAINING FOR DRY COUGH AND ADMITTING FOR HYPOKALEMIA, IV ON LEFT AC INFUSING WELL ROCEPHIN FROM ER,ALMOST DONE;;, PT IS ORIENTED TO THE FLOOR CALL LIGHT WITHIN REACH
--- NOTE | 2019-06-22 22:30 | NUR ---
Patient will be admitted to [facility]. Admited to TELE. Will go to room 111A. Belongings list completed. Report to DEBORAH WEATHERS.
[2019-06-22] MEDS ORDERED: CLINDAMYCIN 900 MG/6 ML VIAL IV ONE (23:13)
--- NOTE | 2019-06-23 01:53 | NUR ---
PT SLEEPING WELL NOT SOB NOTED PT ON CLOSE MONITORING ON TELEMETRY SR
[2019-06-23 04:00] VITALS: BP 117/73
--- NOTE | 2019-06-23 04:00 | NUR ---
PT BREATHING WELL NOT SOB NOTED BUT PERSISTENT DRY COUGH, ;;ON TELEMETRYKK SR
--- NOTE | 2019-06-23 05:28 | NUR ---
PT AMBULATES TO THE RESTROOM VO;IDING WELL ON TELE SR
[2019-06-23] MEDS: BLOOD GLUCOSE MONITORING 1 DEV DEV FS SCH ×2 (06:01→11:31)
[2019-06-23 06:21] LABS: BASOPHILS # (AUTO) 0.1 K/uL (0.00-0.22); BASOPHILS % (AUTO) 0.8 % (0.0-2.0); EOSINOPHILS # (AUTO) 0.1 K/uL (0-0.4); EOSINOPHILS % (AUTO) 1.7 % (0.0-4.0); HEMATOCRIT 23.3 % (36-48); HEMOGLOBIN 7.9 g/dL (12.0-16.0); LYMPHOCYTES # (AUTO) 2.4 K/uL (2.5-16.5); MEAN CORPUSCULAR HEMOGLOBIN 30 pg (27-31); MEAN CORPUSCULAR HGB CONC 34 g/dL (33-37); MEAN CORPUSCULAR VOLUME 87.6 fL (80-94); MONOCYTES # (AUTO) 0.7 K/uL (0.8-1.0); MONOCYTES % (AUTO) 9.9 % (1.7-9.3); NEUTROPHILS % (AUTO) 54.6 % (42.2-75.2); PLATELET COUNT (AUTO) 526 K/uL (140-450); RED BLOOD CELL COUNT(AUTO) 2.66 MIL/uL (4.20-5.40); RED CELL DISTRIBUTION WIDTH 13.4 % (11.6-13.7); WHITE BLOOD COUNT (AUTO) 7.3 K/uL (4.8-10.8)
--- NOTE | 2019-06-23 06:36 | NUR ---
BLOOD SUGAR TEST 86 PT WILL BE ENDORSED TO DAY SHIFT NURSE FOR CONTINUE OF CARE
[2019-06-23 06:50] LABS: ANION GAP 11.2 (8-16); CARBON DIOXIDE 27.3 mmol/L (21-32); MAGNESIUM 1.9 mg/dL (1.8-2.4); POTASSIUM 3.5 mmol/L (3.5-5.1); TOTAL BILIRUBIN 0.2 mg/dL (0.0-1.0)
--- NOTE | 2019-06-23 07:15 | NUR ---
RECEIVED BEDSIDE REPORT FROM NIGHTSHIFT NURSE. PT RESTING IN BED UPON ARRIVAL. ABLE TO MAKE NEEDS KNOWN. RESPIRATIONS EVEN AND UNLABORED WITH NO SOB OR RESPIRATORY DISTRESS. SKIN WARM AND DRY TO TOUCH. IV SITE IN LAC 20G IS CLEAN, DRY, AND INTACT. SAFETY MEASURES IN PLACE. WILL CONTINUE TO MONITOR.
[2019-06-23 07:19] LABS: CREATININE 0.5 mg/dL (0.6-1.3)
[2019-06-23 08:00] VITALS: BP 112/74
[2019-06-23] MEDS: POTASSIUM CHLORIDE 10 MEQ TABER PO SCH ×2 (08:28→11:18)
--- NOTE | 2019-06-23 08:35 | NUR ---
PATIENT HAS BEEN SCREENED AND CATEGORIZED MODERATE NUTRITION RISK. PATIENT WILL BE SEEN WITHIN 3-5 DAYS OF ADMISSION. 06/25/19 06/27/[address]
--- NOTE | 2019-06-23 08:37 | NUR ---
ADMINISTERED SCHED MED PRESCRIBED PER MD ORDER. PT TOLERATED WELL. MEDICATION EDUCATION PERFORMED. PT VERBALIZED UNDERSTANDING. SAFETY MEASURES IN PLACE. WILL CONTINUE TO MONITOR
[2019-06-23] MEDS ORDERED: MULTIVITAMIN/MINERALS 1 TAB PO SCH (09:00)
[2019-06-23] MEDS ORDERED: INSULIN LANTUS 100 UNITS/ML 10 ML VIAL SUBQ SCH (09:00)
[2019-06-23] MEDS ORDERED: NON-FORMULARY ITEM (Insulin Glargine,Hum.rec.anlog (Lantus Solostar) 30 UNIT) SUBQ SCH (09:00)
[2019-06-23] MEDS ORDERED: NON-FORMULARY ITEM (Prenatal Vit/Iron Fumarate/FA (Prenatal Tablet) 1 TAB) PO SCH (09:00)
--- NOTE | 2019-06-23 10:15 | NUR ---
HOURLY ROUNDING. PT RESTING IN BED WITH AT BEDSIDE. ABLE TO MAKE NEEDS KNOWN. RESPIRATIONS EVEN AND UNLABORED WITH NO SOB OR RESPIRATORY DISTRESS. SKIN WARM AND DRY TO TOUCH. SAFETY MEASURES IN PLACE. WILL CONTINUE TO MONITOR
--- NOTE | 2019-06-23 11:22 | NUR ---
ADMINISTERED SCHED MED PRESCRIBED PER MD ORDER. PT TOLERATED WELL. MEDICATION EDUCATION PERFORMED. PT VERBALIZED UNDERSTANDING. SAFETY MEASURES IN PLACE. WILL CONTINUE TO MONITOR
[2019-06-23 12:00] VITALS: BP 121/72
--- NOTE | 2019-06-23 13:11 | NUR ---
PT RESTING IN BED WITH AT BEDSIDE. PT ABLE TO MAKE NEEDS KNOWN. RESPIRATIONS EVEN AND UNLABORED WITH NO SOB OR RESPIRATORY DISTRESS. SKIN WARM AND DRY TO TOUCH. SAFETY MEASURES IN PLACE. WILL CONTINUE TO MONITOR
[2019-06-23] MEDS ORDERED: LEVO750T2 PO (14:01)
--- NOTE | 2019-06-23 14:02 | NUR ---
PT IS AWARE OF DISCHARGE AND WOULD LIKE TO GO HOME BEFORE 3PM. SAFETY MEASURES IN PLACE. WILL CONTINUE TO MONITOR.
[2019-06-23 14:12] VITALS: BP 121/72
--- NOTE | 2019-06-23 14:35 | NUR ---
WENT OVER DC INSTRUCTIONS WITH PT. PT SIGNED APPROPRIATE DOCUMENTS. INSTRUCTED PT TO VISIT ED FOR ANY SIGNS OF DISTRESS. PT VERBALIZED UNDERSTANDING. INTACT IV CANNULA AND ID BANDS, AND ALLERGY BAND REMOVED. PT CHANGED INTO OWN CLOTHING AND GATHERED THEIR BELONGINGS. TELE MONITOR REMOVED AND RETURNED TO MT ROOM. PT HAD FLU VACCINE AND DID NOT QUALIFY FOR PNA VACCINE. PT WHEELED TO PRIVATE VEHICLE TO RETURN HOME. PT IS STABLE.
[2019-06-23] MEDS ORDERED: METR250T2 PO (14:49)
--- NOTE | 2019-06-23 16:17 | NUR ---
Commercial Construction Estimator Note: Basic Screen: Yes High Risk DC Screen [place]: KENYA WOODS [place] Relationship: BROTHER Pre-Admission Living Arrangements: Lives with Other Prior ADL Independent Current Home Health Name/Tel: N/A Current DME/02 Name/Tel: N/A Current Hospice Name/Tel: N/A Current Dialysis Name/Tel: N/A Healthcare Decision Maker: Patient Advance Directive No Physician Orders for Life Sustaining Treatment Form No Patient/Family Have Educational Needs No Information Taught: Advance Directive Person Taught: Patient Teaching Tools: Verbal Factors Affecting Learning: None Participation Level: Refused Needs Additional Education: No Discipline: Case Mgt/Social Svcs Tentative Discharge Plan/Destination: No Needs Identified Will require assistance post discharge: No Referred to Agronomy Manager: No Tentative Discharge Plan Summary: Patient is a 28-year-old female admitted for hypokalemia. Patient has PMHX of diabetes. Patient was admitted from home where she lives iwth her mother, brothers, and son. SW met with patient to verify demographics. Patient reported no history of substance abuse or mental health. Tentative discharge plan for patient is to return home. No further needs identified. Signature: [place] Jane Date: Jun 23, 2019 Time: 16:15
== END 2019-06-23 14:35 | disposition home or self-care (01) ==
LOC: MED 16:09 → INTOOBSV 21:53 → MTU 21:53
PROVIDERS: ADMIT Hospitalist; ATTEND Hospitalist
DX: J18.9 Pneumonia, unspecified organism (principal); E10.10 Type 1 diabetes mellitus with ketoacidosis without coma; K76.9 Liver disease, unspecified; E87.6 Hypokalemia; Z96.41 Presence of insulin pump (external) (internal)
CPT/HCPCS: 36415; 71045; 71275; 80053; 82948; 83605; 83735; 85025; 85379; 85610; 87040; 87081; 93005; 94640; 96365; 96367; 96372; 99285; G0378; J0696; J1815; J3490; J7613; Q9967

== ENCOUNTER 2020-03-14 11:15 | Observation (INO) | payer OTHER, SELFPAY ==
[~2020-03-14] VITALS: Ht 160 cm; Wt 108.9 kg
[~2020-03-14 11:15] MED LIST changes: -CEPH250C16 PO; +LEVO750T2 PO; +METR250T2 PO
[2020-03-14] MEDS ORDERED: LACTATED RINGERS 1,000 ML IV SCH (11:25)
[2020-03-14] MEDS ORDERED: INSU100I7 SQ (11:48)
[2020-03-14] MEDS ORDERED: INSU100V6 SQ (11:53)
[2020-03-14] MEDS ORDERED: VITA1TAB44 PO (11:53)
[2020-03-14 11:57] LABS: APPEARANCE,URINE HAZY (CLEAR); BILIRUBIN,URINE NEGATIVE (NEGATIVE); BLOOD, URINE NEGATIVE (NEGATIVE); COLOR,URINE YELLOW (YELLOW); LEUKOCYTE ESTERASE ,URINE 3+ (NEGATIVE); NITRITE, URINE NEGATIVE (NEGATIVE); UGLUCOSE NEGATIVE (NEGATIVE)
[2020-03-14 11:57] LABS: BASOPHILS # (AUTO) 0.1 K/uL (0.00-0.22); BASOPHILS % (AUTO) 0.7 % (0.0-2.0); EOSINOPHILS % (AUTO) 0.3 % (0.0-4.0); HEMATOCRIT 39.5 % (36-48); HEMOGLOBIN 13.5 g/dL (12.0-16.0); LYMPHOCYTES # (AUTO) 2.4 K/uL (2.5-16.5); LYMPHOCYTES % (AUTO) 18.4 % (20.5-51.1); MEAN CORPUSCULAR HEMOGLOBIN 30 pg (27-31); MEAN CORPUSCULAR HGB CONC 34 g/dL (33-37); MEAN CORPUSCULAR VOLUME 88.2 fL (80-94); MONOCYTES # (AUTO) 0.7 K/uL (0.8-1.0); MONOCYTES % (AUTO) 5.2 % (1.7-9.3); NEUTROPHILS # (AUTO) 9.9 K/uL (1.8-7.7); NEUTROPHILS % (AUTO) 75.4 % (42.2-75.2); PLATELET COUNT (AUTO) 224 K/uL (140-450); RED BLOOD CELL COUNT(AUTO) 4.48 MIL/uL (4.20-5.40); RED CELL DISTRIBUTION WIDTH 13.2 % (11.6-13.7); WHITE BLOOD COUNT (AUTO) 13.2 K/uL (4.8-10.8)
[2020-03-14] MEDS ORDERED: BETAMETH ACET/BETAMETH NA PH 30 MG/5 ML VIAL IM SCH (12:00)
[2020-03-14 12:12] LABS: ALBUMIN 2.6 g/dL (3.4-5.0); ANION GAP 17.9 (8-16); CARBON DIOXIDE 17.9 mmol/L (21-32); CREATININE 0.5 mg/dL (0.6-1.3); POTASSIUM 3.8 mmol/L (3.5-5.1); TOTAL BILIRUBIN 0.4 mg/dL (0.0-1.0)
[2020-03-14 12:13] LABS: RBC,URINE 0-5 /HPF (0-5)
[2020-03-14 16:35] VITALS: BP 117/72
[2020-03-14] MEDS: INSULIN LISPRO SLIDING SCALE 100 UNITS/ML VIAL SUBQ PRN (19:56)
[2020-03-15] MEDS: INSULIN LISPRO SLIDING SCALE 100 UNITS/ML VIAL SUBQ PRN ×2 (08:03→13:31)
[2020-03-15] MEDS ORDERED: INSULIN LANTUS 100 UNITS/ML 10 ML VIAL SUBQ SCH (09:00)
[2020-03-15] MEDS ORDERED: BETAMETH ACET/BETAMETH NA PH 30 MG/5 ML VIAL IM ONE (12:22)
[2020-03-15] MEDS ORDERED: BETAMETH ACET/BETAMETH NA PH 30 MG/5 ML VIAL IM SCH (12:30)
== END 2020-03-15 14:35 | disposition home or self-care (01) ==
LOC: MFCC 11:15
PROVIDERS: ADMIT Obstetrics & Gynecology; ATTEND Obstetrics & Gynecology
DX: O24.415 Gestational diabetes mellitus in pregnancy, controlled by oral hypoglycemic drugs (principal); Z20.828 Contact with and (suspected) exposure to other viral communicable diseases; O36.8130 Decreased fetal movements, third trimester, not applicable or unspecified; O23.43 Unspecified infection of urinary tract in pregnancy, third trimester; Z3A.35 35 weeks gestation of pregnancy
CPT/HCPCS: 36415; 59025; 76819; 80053; 81001; 82948; 85025; 86886; 86900; 86901; 87086; 87426; 96360; 96361; 96372; G0378; J0702; J1815; J7120; Q0092

== ENCOUNTER 2020-03-25 15:22 | Outpatient (CLI) | payer OTHER, SELFPAY ==
[~2020-03-25 15:22] MED LIST changes: -GUAI-1094 PO; +INSU100I7 SQ; -INSU100S22 SUBQ; +INSU100V6 SQ; -LEVO750T2 PO; -METR250T2 PO
== END 2020-03-25 22:25 | disposition home or self-care (01) ==
LOC: MLB 15:22
PROVIDERS: ATTEND Obstetrics & Gynecology
DX: Z20.828 Contact with and (suspected) exposure to other viral communicable diseases (principal)
CPT/HCPCS: U0003

== ENCOUNTER 2020-03-26 11:52 | Inpatient (IN) | payer OTHER, SELFPAY ==
[~2020-03-26] VITALS: Ht 160 cm; Wt 110.7 kg
[2020-03-26] MEDS ORDERED: CITRIC ACID/SODIUM CITRATE 30 ML UDC PO SCH (12:23)
[2020-03-26 13:04] LABS: BASOPHILS # (AUTO) 0.2 K/uL (0.00-0.22); BASOPHILS % (AUTO) 1.6 % (0.0-2.0); EOSINOPHILS % (AUTO) 0.3 % (0.0-4.0); HEMATOCRIT 39.6 % (36-48); HEMOGLOBIN 13.3 g/dL (12.0-16.0); LYMPHOCYTES # (AUTO) 1.8 K/uL (2.5-16.5); LYMPHOCYTES % (AUTO) 13.1 % (20.5-51.1); MEAN CORPUSCULAR HEMOGLOBIN 30 pg (27-31); MEAN CORPUSCULAR HGB CONC 34 g/dL (33-37); MEAN CORPUSCULAR VOLUME 88.9 fL (80-94); MONOCYTES # (AUTO) 0.5 K/uL (0.8-1.0); MONOCYTES % (AUTO) 3.8 % (1.7-9.3); NEUTROPHILS % (AUTO) 81.2 % (42.2-75.2); PLATELET COUNT (AUTO) 213 K/uL (140-450); RED BLOOD CELL COUNT(AUTO) 4.45 MIL/uL (4.20-5.40); RED CELL DISTRIBUTION WIDTH 13.2 % (11.6-13.7); WHITE BLOOD COUNT (AUTO) 13.5 K/uL (4.8-10.8)
[2020-03-26 13:29] LABS: ALBUMIN 2.4 g/dL (3.4-5.0); ANION GAP 17.5 (8-16); CARBON DIOXIDE 19.2 mmol/L (21-32); CREATININE 0.5 mg/dL (0.6-1.3); POTASSIUM 3.7 mmol/L (3.5-5.1); TOTAL BILIRUBIN 0.3 mg/dL (0.0-1.0)
[2020-03-26 13:31] VITALS: BP 134/71
[2020-03-26 13:47] LABS: APPEARANCE,URINE SL CLOUDY (CLEAR); BILIRUBIN,URINE NEGATIVE (NEGATIVE); BLOOD, URINE NEGATIVE (NEGATIVE); COLOR,URINE YELLOW (YELLOW); LEUKOCYTE ESTERASE ,URINE 3+ (NEGATIVE); NITRITE, URINE NEGATIVE (NEGATIVE); UGLUCOSE NEGATIVE (NEGATIVE)
[2020-03-26] MEDS: LACTATED RINGERS 1,000 ML IV SCH ×2 (14:00→17:54)
[2020-03-26 15:01] LABS: RBC,URINE 0-5 /HPF (0-5); WBC,URINE 20-60 /HPF (0-5)
[2020-03-26] MEDS ORDERED: MIDAZOLAM 2 MG/2 ML VIAL ONE (17:23)
[2020-03-26] MEDS ORDERED: MORPHINE PRES FREE 10 MG/10 ML AMP IV ONE (17:23)
[2020-03-26] MEDS ORDERED: fentaNYL citrate 0.05 MG/ML VIAL ONE (17:23)
[2020-03-26] MEDS ORDERED: DEXTROSE 50% 50 ML SYR IVP SCH (17:57)
[2020-03-26] MEDS ORDERED: NALOXONE 0.4 MG/ML VIAL IVP PRN ×2 (18:00)
[2020-03-26] MEDS ORDERED: MEPERIDINE 25 MG/ML SYR IVP PRN (18:00)
[2020-03-26] MEDS ORDERED: diphenhydrAMINE 50 MG/ML VIAL IVP PRN ×2 (18:00)
[2020-03-26] MEDS ORDERED: HYDROmorphone 1 MG/ML AMP IVP PRN (18:00)
[2020-03-26] MEDS ORDERED: ONDANSETRON 4 MG/2 ML VIAL IVP PRN ×2 (18:00)
[2020-03-26] MEDS ORDERED: OXYTOCIN 20 UNITS in LACTATED RINGERS 1,000 ML IV SCH (18:00)
[2020-03-26] MEDS ORDERED: BLOOD GLUCOSE MONITORING 1 DEV DEV FS SCH (18:02)
[2020-03-26] MEDS ORDERED: DEXAMETHASONE 4 MG/ML VIAL ONE (18:27)
[2020-03-26] MEDS ORDERED: METOCLOPRAMIDE 10 MG/2 ML INJ VIAL ONE (18:27)
[2020-03-26] MEDS ORDERED: LIDOCAINE MPF 2% 100 MG/5 ML VIAL INJ ONE (18:27)
[2020-03-26] MEDS ORDERED: PHENYLEPHRINE 10 MG/ML VIAL ONE (18:27)
[2020-03-26] MEDS ORDERED: OXYTOCIN 20 UNITS/LR PREMIX 1,000 ML IV ONE (19:09)
[2020-03-26] MEDS ORDERED: MEASLES, MUMPS, AND RUBELLA 1 VIAL SQVAC PRN (23:00)
[2020-03-26] MEDS ORDERED: METHYLERGONOVINE 0.2 MG/ML AMP IM PRN (23:00)
[2020-03-27] MEDS: KETOROLAC 30 MG/ML VIAL IM/IVP SCH ×4 (00:25→17:56)
[2020-03-27] MEDS ORDERED: OXYTOCIN 20 UNITS/LR PREMIX 1,000 ML IV ONE (02:35)
[2020-03-27] MEDS: OXYTOCIN 20 UNITS in LACTATED RINGERS 1,000 ML IV SCH ×2 (02:53→11:00)
[2020-03-27 05:59] LABS: CORRECTED WHITE BLOOD COUNT 19.3 K/uL (4.5-11.0); HEMOGLOBIN 11.7 g/dL (12.0-16.0); MEAN CORPUSCULAR HEMOGLOBIN 30 pg (27-31); MEAN CORPUSCULAR VOLUME 88.1 fL (80-94); RED BLOOD CELL COUNT(AUTO) 3.86 MIL/uL (4.20-5.40); WHITE BLOOD COUNT (AUTO) 19.3 K/uL (4.8-10.8)
[2020-03-27 06:00] LABS: BASOPHILS # (AUTO) 0.1 K/uL (0.00-0.22); BASOPHILS % (AUTO) 0.4 % (0.0-2.0); EOSINOPHILS % (AUTO) 0.2 % (0.0-4.0); LYMPHOCYTES # (AUTO) 2.1 K/uL (2.5-16.5); LYMPHOCYTES % (AUTO) 10.7 % (20.5-51.1); MEAN CORPUSCULAR HGB CONC 34 g/dL (33-37); MONOCYTES # (AUTO) 1.6 K/uL (0.8-1.0); MONOCYTES % (AUTO) 8.1 % (1.7-9.3); NEUTROPHILS # (AUTO) 15.6 K/uL (1.8-7.7); NEUTROPHILS % (AUTO) 80.6 % (42.2-75.2); PLATELET COUNT (AUTO) 189 K/uL (140-450); RED CELL DISTRIBUTION WIDTH 13.1 % (11.6-13.7)
--- NOTE | 2020-03-27 08:37 | NUR ---
PATIENT HAS BEEN SCREENED AND CATEGORIZED LOW NUTRITION RISK. PATIENT WILL BE SEEN WITHIN 7 DAYS OF ADMISSION. 04/01/[address]
[2020-03-27] MEDS ORDERED: bisacodyL 10 MG SUPP RC SCH (09:00)
[2020-03-27] MEDS ORDERED: SIMETHICONE 80 MG TAB.CHEW PO PRN (19:40)
[2020-03-28] MEDS: IBUPROFEN 800 MG TAB PO PRN ×3 (00:31→17:38)
[2020-03-28] MEDS: oxyCODONE/APAP 5/325 MG 1 TAB TAB PO PRN ×2 (08:24→13:21)
[2020-03-28] MEDS ORDERED: CAMERA MC ONE (20:05)
== END 2020-03-28 21:40 | disposition home or self-care (01) | DRG 540 ==
LOC: MLD 11:52 → MFCC 21:00
PROVIDERS: ADMIT Obstetrics & Gynecology; ATTEND Obstetrics & Gynecology
PROC: 10D00Z1 Extraction of Products of Conception, Low, Open Approach (ICD-10-PCS; principal; 2020-03-26 18:00)
PROC: 3E0234Z Introduction of Serum, Toxoid and Vaccine into Muscle, Percutaneous Approach (ICD-10-PCS; 2020-03-28)
DX: O41.03X0 Oligohydramnios, third trimester, not applicable or unspecified (principal); O34.211 Maternal care for low transverse scar from previous cesarean delivery; O24.429 Gestational diabetes mellitus in childbirth, unspecified control; O60.14X0 Preterm labor third trimester with preterm delivery third trimester, not applicable or unspecified; Z20.828 Contact with and (suspected) exposure to other viral communicable diseases; Z37.0 Single live birth; Z23 Encounter for immunization; D72.829 Elevated white blood cell count, unspecified; Z3A.37 37 weeks gestation of pregnancy; O99.52 Diseases of the respiratory system complicating childbirth; J45.909 Unspecified asthma, uncomplicated; O76 Abnormality in fetal heart rate and rhythm complicating labor and delivery; O99.214 Obesity complicating childbirth
CPT/HCPCS: 36415; 80053; 81001; 82948; 85025; 86592; 86886; 86900; 86901; 87086; 90715; J0690; J1100; J1200; J1885; J2001; J2250; J2270; J2370; J2405; J2590; J2765; J3010; J7060; J7120

== ENCOUNTER 2020-08-25 07:29 | Emergency (ER) | payer OTHER, SELFPAY ==
[~2020-08-25] VITALS: Ht 160 cm; Wt 97.5 kg
[~2020-08-25 07:29] MED LIST changes: -INSU100I7 SQ; -INSU100V6 SQ
[2020-08-25 07:39] VITALS: BP 161/99
--- NOTE | 2020-08-25 07:39 | NUR ---
PT WAS ABLE TO AMBULATE TO BED 3 AT 0738
--- NOTE | 2020-08-25 07:39 | NUR ---
29Y F c/c L gluteal abscess x2days that causes 7/10 throbbing pain and intensifies when she's standing. Pt reports hx of abscess near her thighs that was drained and packed 3yrs ago. Pt took 2 Tylenol with no pain relief. PMH: Asthma, DM2 RX: Albuterol, Lispro Kwiki-pen, Basaglar Kwiki-pen NKA
[2020-08-25] MEDS ORDERED: IBUPROFEN 600 MG TAB PO ONE (08:15)
[2020-08-25] MEDS ORDERED: DOXYCYCLINE 100 MG CAP PO SCH (08:15)
[2020-08-25] MEDS ORDERED: IBUP-2213 PO (08:44)
[2020-08-25] MEDS ORDERED: DOXY-487 PO (08:44)
[2020-08-25] MEDS ORDERED: HYDROcodone/APAP 5/325 MG 1 TAB TAB PO ONE (08:45)
[2020-08-25] MEDS ORDERED: HYDR-5080 PO (08:47)
[2020-08-25 08:55] VITALS: BP 118/49
--- NOTE | 2020-08-25 08:55 | NUR ---
Patient discharged with v/s stable. Written and verbal after care instructions given and explained. Patient alert, oriented and verbalized understanding of instructions. Ambulatory with steady gait. All questions addressed prior to discharge. ID band removed. Patient advised to follow up with PMD. Rx of [place], Doxycycline given. Patient educated on indication of medication including possible reaction and side effects. Opportunity to ask questions provided and answered.
== END 2020-08-25 08:55 | disposition home or self-care (01) ==
LOC: MED 07:29
DX: L03.317 Cellulitis of buttock (principal); E11.9 Type 2 diabetes mellitus without complications; Z79.899 Other long term (current) drug therapy
CPT/HCPCS: 99283

== ENCOUNTER 2020-08-28 18:26 | Emergency (ER) | payer OTHER ==
[~2020-08-28] VITALS: Ht 160 cm; Wt 111.1 kg
[~2020-08-28 18:26] MED LIST changes: +DOXY-487 PO; +HYDR-5080 PO; +IBUP-2213 PO
[2020-08-28 18:38] VITALS: BP 137/97
--- NOTE | 2020-08-28 18:42 | NUR ---
PT AMBULATED TO BED 4.
--- NOTE | 2020-08-28 18:54 | NUR ---
29 Y/O FEMALE C/O RECTAL PAIN 02/23 DESCRIBES SHARP/THROBBING RADIATES TO ABDOMEN X3DAYS. PT RECENTLY SEEN DX WITH [facility]I ON WEDNESDAY, PRESCRIBED PAIN MEDS AND ABX. SAW PCP GIVEN ABX SHOT, TODAY HEARD RUPTURE LEAKING PAIN 02/23, DENIES N/V, DENIES FEVER/CHILLS. PMH: DM, ASTHMA NKA
--- NOTE | 2020-08-28 19:19 | NUR ---
Dr. Whitmore at pt bedside for further evaluation.
--- NOTE | 2020-08-28 19:21 | NUR ---
Gave report to SARAHY Pritchard, transfer of care at this time.
--- NOTE | 2020-08-28 19:22 | NUR ---
RECEIVED REPORT FROM SARAHY HERNANDEZ FOR CONTINUITY OF CARE
[2020-08-28] MEDS ORDERED: IBUPROFEN 600 MG TAB PO ONE (19:25)
[2020-08-28] MEDS ORDERED: LIDOCAINE 2% 1000 MG/50 ML VIAL INJ ONE (19:25)
[2020-08-28] MEDS ORDERED: CEPH500C16 PO (20:22)
[2020-08-28] MEDS ORDERED: SULF-59 PO (20:22)
[2020-08-28 20:47] VITALS: BP 137/97
--- NOTE | 2020-08-28 20:48 | NUR ---
Patient discharged with v/s stable. Written and verbal after care instructions given and explained. Patient alert, oriented and verbalized understanding of instructions. Ambulatory with steady gait. All questions addressed prior to discharge. ID band removed. Patient advised to follow up with PMD. Rx of CEPHALEXIN AND SULFAMETHOXAZOLE given. Patient educated on indication of medication including possible reaction and side effects. Opportunity to ask questions provided and answered.
== END 2020-08-28 20:48 | disposition home or self-care (01) ==
LOC: MED 18:26
DX: L02.31 Cutaneous abscess of buttock (principal); E11.9 Type 2 diabetes mellitus without complications; J45.909 Unspecified asthma, uncomplicated; Z79.899 Other long term (current) drug therapy
CPT/HCPCS: 10060; 99282; J2001

== ENCOUNTER 2020-10-15 08:53 | Emergency (ER) | payer OTHER ==
[~2020-10-15] VITALS: Ht 160 cm; Wt 99.8 kg
[~2020-10-15 08:53] MED LIST changes: +CEPH500C16 PO; +SULF-59 PO
[2020-10-15 09:05] VITALS: BP 147/98
--- NOTE | 2020-10-15 09:20 | NUR ---
Dr. Mccarthy is evaluating the patient at bedside.
[2020-10-15] MEDS ORDERED: ACETAMINOPHEN 325 MG TAB PO ONE (09:25)
--- NOTE | 2020-10-15 09:50 | NUR ---
29/F presents to ED with c/o back pain radiating to her neck since this morning. Patient states she was at home mopping when she slipped and fell, patient states she hit her head but denies LOC. Patient denies taking anything at home for pain, patient describes it as an 8/10 throbbing pain in her lower back radiating up to her mid back, along with neck pain and arm pain. No bruising or lacerations noted. Patient able to ambulate without assistance, states pain worsens with movement.
[2020-10-15 09:56] LABS: BASOPHILS # (AUTO) 0.1 K/uL (0.00-0.22); BASOPHILS % (AUTO) 0.7 % (0.0-2.0); EOSINOPHILS # (AUTO) 0.1 K/uL (0-0.4); EOSINOPHILS % (AUTO) 0.7 % (0.0-4.0); HEMATOCRIT 43.1 % (36-48); HEMOGLOBIN 14.7 g/dL (12.0-16.0); LYMPHOCYTES # (AUTO) 2.2 K/uL (2.5-16.5); LYMPHOCYTES % (AUTO) 23.8 % (20.5-51.1); MEAN CORPUSCULAR HEMOGLOBIN 29 pg (27-31); MEAN CORPUSCULAR HGB CONC 34 g/dL (33-37); MEAN CORPUSCULAR VOLUME 84.6 fL (80-94); MONOCYTES # (AUTO) 0.6 K/uL (0.8-1.0); NEUTROPHILS # (AUTO) 6.3 K/uL (1.8-7.7); NEUTROPHILS % (AUTO) 68.8 % (42.2-75.2); PLATELET COUNT (AUTO) 309 K/uL (140-450); RED CELL DISTRIBUTION WIDTH 13.7 % (11.6-13.7); WHITE BLOOD COUNT (AUTO) 9.2 K/uL (4.8-10.8)
--- NOTE | 2020-10-15 10:05 | NUR ---
Ultrasound at bedside
[2020-10-15 10:06] LABS: APPEARANCE,URINE CLEAR (CLEAR); BILIRUBIN,URINE 2+ (NEGATIVE); BLOOD, URINE TRACE-I (NEGATIVE); COLOR,URINE YELLOW (YELLOW); LEUKOCYTE ESTERASE ,URINE NEGATIVE (NEGATIVE); NITRITE, URINE NEGATIVE (NEGATIVE); UGLUCOSE 3+ (NEGATIVE)
[2020-10-15 10:16] LABS: RBC,URINE NONE SEEN /HPF (0-5); WBC,URINE 0-5 /HPF (0-5)
--- NOTE | 2020-10-15 11:15 | NUR ---
Patient provided with food tray
--- NOTE | 2020-10-15 11:25 | NUR ---
Patient discharged with v/s stable. Written and verbal after care instructions given and explained. Patient alert, oriented and verbalized understanding of instructions. Ambulatory with steady gait. All questions addressed prior to discharge. ID band removed. Patient advised to follow up with PMD. Rx of Tylenol Extra Strength given. Patient educated on indication of medication including possible reaction and side effects. Opportunity to ask questions provided and answered.
[2020-10-15] MEDS ORDERED: ACET-10509 PO (11:32)
[2020-10-15 12:01] VITALS: BP 147/98
== END 2020-10-15 11:45 | disposition home or self-care (01) ==
LOC: MED 08:53
DX: O9A.211 Injury, poisoning and certain other consequences of external causes complicating pregnancy, first trimester (principal); S30.0XXA Contusion of lower back and pelvis, initial encounter; J45.909 Unspecified asthma, uncomplicated; Z98.890 Other specified postprocedural states; Z79.899 Other long term (current) drug therapy; Z3A.01 Less than 8 weeks gestation of pregnancy; W01.0XXA Fall on same level from slipping, tripping and stumbling without subsequent striking against object, initial encounter; Y93.89 Activity, other specified; Y92.89 Other specified places as the place of occurrence of the external cause; Y99.8 Other external cause status
CPT/HCPCS: 36415; 76817; 81001; 81025; 84702; 85025; 86900; 86901; 99284

== ENCOUNTER 2020-11-01 15:15 | Emergency (ER) | payer OTHER ==
[~2020-11-01] VITALS: Ht 160 cm; Wt 108.9 kg
[~2020-11-01 15:15] MED LIST changes: +ACET-10509 PO
[2020-11-01 15:26] VITALS: BP 129/77
--- NOTE | 2020-11-01 15:38 | NUR ---
29 Y/O F BIB SELF FROM HOME,PT STATES SHE WAS TOLD BY PRIMARY JERZY BRO TO COME TO ER IN REGARDS TO HEAVY VAGINAL BLEEDING THAT STARTED 10/29. WAS TOLD BY THAT SHE MAY BE HAVING POSSIBLE MISCARRIAGE. 6G 2T 0P 4A 2L. DENIES N&V, CONSTIPATION AND DIARRHEA. C/O PELVIC PAIN 12/24, DENIES DISCHARGE FROM AREA. PMH: DM2 NKA
--- NOTE | 2020-11-01 16:18 | NUR ---
LAB AT BEDSIDE
--- NOTE | 2020-11-01 16:30 | NUR ---
US AT BEDSIDE
[2020-11-01 16:52] LABS: BASOPHILS # (AUTO) 0.1 K/uL (0.00-0.22); BASOPHILS % (AUTO) 0.7 % (0.0-2.0); EOSINOPHILS % (AUTO) 0.6 % (0.0-4.0); HEMATOCRIT 40.8 % (36-48); HEMOGLOBIN 13.9 g/dL (12.0-16.0); LYMPHOCYTES # (AUTO) 2.3 K/uL (2.5-16.5); LYMPHOCYTES % (AUTO) 27.8 % (20.5-51.1); MEAN CORPUSCULAR HEMOGLOBIN 29 pg (27-31); MEAN CORPUSCULAR HGB CONC 34 g/dL (33-37); MEAN CORPUSCULAR VOLUME 86.4 fL (80-94); MONOCYTES # (AUTO) 0.6 K/uL (0.8-1.0); MONOCYTES % (AUTO) 6.8 % (1.7-9.3); NEUTROPHILS # (AUTO) 5.4 K/uL (1.8-7.7); NEUTROPHILS % (AUTO) 64.1 % (42.2-75.2); PLATELET COUNT (AUTO) 299 K/uL (140-450); RED BLOOD CELL COUNT(AUTO) 4.73 MIL/uL (4.20-5.40); RED CELL DISTRIBUTION WIDTH 13.6 % (11.6-13.7); WHITE BLOOD COUNT (AUTO) 8.3 K/uL (4.8-10.8)
[2020-11-01 16:54] LABS: BILIRUBIN,URINE NEGATIVE (NEGATIVE); BLOOD, URINE 3+ (NEGATIVE); LEUKOCYTE ESTERASE ,URINE NEGATIVE (NEGATIVE); NITRITE, URINE NEGATIVE (NEGATIVE); UGLUCOSE 3+ (NEGATIVE)
[2020-11-01 17:11] LABS: APPEARANCE,URINE HAZY (CLEAR); COLOR,URINE STRAW (YELLOW)
[2020-11-01 17:12] LABS: ANION GAP 14.6 (8-16); CARBON DIOXIDE 21.4 mmol/L (21-32); CREATININE 0.7 mg/dL (0.6-1.3)
[2020-11-01 17:19] LABS: RBC,URINE TOO NUMEROUS TO COUN /HPF (0-5); WBC,URINE NONE SEEN /HPF (0-5)
[2020-11-01] MEDS ORDERED: ACETAMINOPHEN 325 MG TAB PO ONE (17:25)
[2020-11-01 17:40] LABS: ALBUMIN 3.1 g/dL (3.4-5.0)
[2020-11-01 18:09] LABS: TOTAL BILIRUBIN 0.2 mg/dL (0.0-1.0)
[2020-11-01 18:22] VITALS: BP 129/77
--- NOTE | 2020-11-01 18:23 | NUR ---
Patient discharged with v/s stable. Written and verbal after care instructions given and explained MISCARRIAGE. Patient verbalized understanding. Ambulatory with steady gait. All questions addressed prior to discharge. Advised to follow up with PMD.
== END 2020-11-01 18:23 | disposition home or self-care (01) ==
LOC: MED 15:15
DX: O03.9 Complete or unspecified spontaneous abortion without complication (principal); J45.909 Unspecified asthma, uncomplicated; E11.9 Type 2 diabetes mellitus without complications; Z98.890 Other specified postprocedural states; Z79.899 Other long term (current) drug therapy
CPT/HCPCS: 36415; 76801; 80053; 81001; 84702; 85025; 86886; 86900; 86901; 99284

== ENCOUNTER 2020-11-03 16:22 | Emergency (ER) | payer OTHER ==
[~2020-11-03] VITALS: Ht 160 cm; Wt 98.0 kg
[2020-11-03 16:27] VITALS: BP 131/64
[2020-11-03 18:44] VITALS: BP 149/91
== END 2020-11-03 18:43 | disposition home or self-care (01) ==
LOC: MED 16:22
DX: O03.9 Complete or unspecified spontaneous abortion without complication (principal); J45.909 Unspecified asthma, uncomplicated; Z79.899 Other long term (current) drug therapy; Z98.890 Other specified postprocedural states
CPT/HCPCS: 36415; 84702; 99283

== ENCOUNTER 2021-12-19 13:57 | Observation (INO) | payer OTHER ==
[~2021-12-19] VITALS: Ht 157.5 cm; Wt 117.5 kg
[2021-12-19] MEDS ORDERED: HUM SUBQ (14:46)
[2021-12-19 14:50] VITALS: BP 115/68
== END 2021-12-19 19:15 | disposition home or self-care (01) ==
LOC: MLD 13:57
PROVIDERS: ADMIT Obstetrics & Gynecology; ATTEND Obstetrics & Gynecology
DX: O99.891 Other specified diseases and conditions complicating pregnancy (principal); M54.9 Dorsalgia, unspecified; M25.552 Pain in left hip; O36.8320 Maternal care for abnormalities of the fetal heart rate or rhythm, second trimester, not applicable or unspecified; Z3A.25 25 weeks gestation of pregnancy; W19.XXXA Unspecified fall, initial encounter; Y93.89 Activity, other specified; Y92.009 Unspecified place in unspecified non-institutional (private) residence as the place of occurrence of the external cause
CPT/HCPCS: 36415; 85384; 86886; 86900; 86901; G0378; 81000

== ENCOUNTER 2022-03-15 14:37 | Inpatient (IN) | payer OTHER ==
[~2022-03-15] VITALS: Ht 160 cm; Wt 119.7 kg
[~2022-03-15 14:37] MED LIST changes: -ACET-10509 PO; -CEPH500C16 PO; -DOXY-487 PO; +HUM SUBQ; -HYDR-5080 PO; -IBUP-2213 PO; -SULF-59 PO
[2022-03-15] MEDS ORDERED: ceFAZolin 2,000 MG VIAL ONE (15:19)
[2022-03-15 15:27] VITALS: BP 120/71
[2022-03-15] MEDS: LACTATED RINGERS 1,000 ML IV SCH ×2 (15:30→16:11)
[2022-03-15 15:37] LABS: BILIRUBIN,URINE NEGATIVE (NEGATIVE); BLOOD, URINE TRACE-I (NEGATIVE); COLOR,URINE YELLOW (YELLOW); LEUKOCYTE ESTERASE ,URINE 1+ (NEGATIVE); NITRITE, URINE POSITIVE (NEGATIVE); UGLUCOSE 2+ (NEGATIVE)
[2022-03-15 15:40] LABS: BASOPHILS % (AUTO) 0.3 % (0.0-2.0); EOSINOPHILS % (AUTO) 0.2 % (0.0-4.0); HEMATOCRIT 40.4 % (36-48); HEMOGLOBIN 13.8 g/dL (12.0-16.0); LYMPHOCYTES # (AUTO) 2.6 K/uL (2.5-16.5); LYMPHOCYTES % (AUTO) 17.9 % (20.5-51.1); MEAN CORPUSCULAR HEMOGLOBIN 29 pg (27-31); MEAN CORPUSCULAR HGB CONC 34 g/dL (33-37); MEAN CORPUSCULAR VOLUME 85.8 fL (80-94); MONOCYTES % (AUTO) 6.9 % (1.7-9.3); NEUTROPHILS # (AUTO) 10.7 K/uL (1.8-7.7); NEUTROPHILS % (AUTO) 74.7 % (42.2-75.2); PLATELET COUNT (AUTO) 231 K/uL (140-450); WHITE BLOOD COUNT (AUTO) 14.3 K/uL (4.8-10.8)
[2022-03-15 15:43] LABS: APPEARANCE,URINE HAZY (CLEAR)
[2022-03-15 15:57] LABS: ALBUMIN 2.5 g/dL (3.4-5.0); ANION GAP 17.3 (8-16); CARBON DIOXIDE 18.5 mmol/L (21-32); CREATININE 0.6 mg/dL (0.6-1.3); POTASSIUM 3.8 mmol/L (3.5-5.1); TOTAL BILIRUBIN 0.4 mg/dL (0.0-1.0)
[2022-03-15] MEDS ORDERED: MORPHINE PRES FREE 10 MG/10 ML AMP IV ONE (16:00)
[2022-03-15] MEDS ORDERED: MIDAZOLAM 2 MG/2 ML VIAL ONE (16:00)
[2022-03-15 16:02] LABS: WBC,URINE 80-100 /HPF (0-5)
[2022-03-15 16:02] LABS: PROTHROMBIN TIME 9.4 secs (10.8-13.4)
[2022-03-15 16:17] LABS: BARBITURATE, URINE NEGATIVE ng/ml (NEG <=200); BENZODIAZEPINE, URINE NEGATIVE ng/mL (NEG <=200); CANNABINOID, URINE NEGATIVE ng/mL (NEG <=50); COCAINE, URINE NEGATIVE ng/mL (NEG <=300); OPIATE, URINE NEGATIVE ng/mL (NEG <=2000); PHENCYCLIDINE SCREEN,URINE NEGATIVE ng/mL (NEG <=25)
[2022-03-15] MEDS ORDERED: NALOXONE 0.4 MG/ML VIAL IVP PRN ×3 (16:45)
[2022-03-15] MEDS ORDERED: ONDANSETRON 4 MG/2 ML VIAL IVP PRN (16:45)
[2022-03-15] MEDS ORDERED: OXYTOCIN 20 UNITS in LACTATED RINGERS 1,000 ML IV SCH ×2 (16:45→17:25)
[2022-03-15] MEDS ORDERED: MEPERIDINE 25 MG/ML SYR IVP PRN (16:45)
[2022-03-15] MEDS ORDERED: NALBUPHINE 10 MG/ML AMP IVP PRN (16:45)
[2022-03-15] MEDS ORDERED: diphenhydrAMINE 50 MG/ML VIAL IVP PRN ×2 (16:45)
[2022-03-15] MEDS ORDERED: HYDROmorphone 1 MG/ML AMP IVP PRN (16:45)
[2022-03-15] MEDS ORDERED: METHYLERGONOVINE 0.2 MG/ML AMP IM PRN (17:25)
[2022-03-15] MEDS ORDERED: MEASLES, MUMPS, AND RUBELLA 1 VIAL SQVAC ONE (17:25)
[2022-03-15] MEDS: ONDANSETRON 4 MG/2 ML VIAL IVP PRN ×2 (17:55→18:25)
[2022-03-15] MEDS ORDERED: OXYTOCIN 20 UNITS/LR PREMIX 1,000 ML IV ONE (20:15)
[2022-03-15] MEDS ORDERED: DEXTROSE 50% 50 ML SYR IVP PRN (22:45)
[2022-03-15] MEDS: INSULIN LISPRO SLIDING SCALE 100 UNITS/ML VIAL SUBQ PRN (23:47)
[2022-03-16] MEDS ORDERED: OXYTOCIN 20 UNITS/LR PREMIX 1,000 ML IV ONE (04:35)
[2022-03-16] MEDS: KETOROLAC 30 MG/ML VIAL IM/IVP SCH ×2 (06:12→12:09)
[2022-03-16 06:27] LABS: BASOPHILS % (AUTO) 0.1 % (0.0-2.0); HEMATOCRIT 34.2 % (36-48); HEMOGLOBIN 11.8 g/dL (12.0-16.0); LYMPHOCYTES # (AUTO) 1.7 K/uL (2.5-16.5); LYMPHOCYTES % (AUTO) 11.4 % (20.5-51.1); MEAN CORPUSCULAR HEMOGLOBIN 30 pg (27-31); MEAN CORPUSCULAR HGB CONC 35 g/dL (33-37); MEAN CORPUSCULAR VOLUME 86.3 fL (80-94); MONOCYTES % (AUTO) 6.8 % (1.7-9.3); NEUTROPHILS # (AUTO) 12.2 K/uL (1.8-7.7); NEUTROPHILS % (AUTO) 81.7 % (42.2-75.2); PLATELET COUNT (AUTO) 185 K/uL (140-450); RED BLOOD CELL COUNT(AUTO) 3.96 MIL/uL (4.20-5.40); RED CELL DISTRIBUTION WIDTH 13.7 % (11.6-13.7); WHITE BLOOD COUNT (AUTO) 14.9 K/uL (4.8-10.8)
[2022-03-16] MEDS ORDERED: CAMERA MC ONE ×2 (07:04→07:20)
[2022-03-16] MEDS ORDERED: BLOOD GLUCOSE MONITORING 1 DEV DEV FS SCH (07:30)
[2022-03-16] MEDS: bisacodyL 10 MG SUPP RC SCH (09:00)
--- NOTE | 2022-03-16 10:16 | NUR ---
PATIENT HAS BEEN SCREENED AND CATEGORIZED LOW NUTRITION RISK. PATIENT WILL BE SEEN WITHIN 7 DAYS OF ADMISSION. 03/22/22 REVIEWED BY NINI [address]
[2022-03-16] MEDS: INSULIN LISPRO SLIDING SCALE 100 UNITS/ML VIAL SUBQ PRN (21:20)
[2022-03-17] MEDS: oxyCODONE/APAP 5/325 MG 1 TAB TAB PO PRN ×2 (03:25→12:28)
[2022-03-17] MEDS: bisacodyL 10 MG SUPP RC SCH (09:28)
== END 2022-03-17 13:50 | disposition home or self-care (01) | DRG 540 ==
LOC: MLD 14:37 → MFCC 18:38
PROVIDERS: ADMIT Obstetrics & Gynecology; ATTEND Obstetrics & Gynecology
PROC: 3E0234Z Introduction of Serum, Toxoid and Vaccine into Muscle, Percutaneous Approach (ICD-10-PCS; 2022-03-15)
PROC: 10D00Z1 Extraction of Products of Conception, Low, Open Approach (ICD-10-PCS; principal; 2022-03-15 16:00)
DX: O34.211 Maternal care for low transverse scar from previous cesarean delivery (principal); D62 Acute posthemorrhagic anemia; O16.4 Unspecified maternal hypertension, complicating childbirth; K66.0 Peritoneal adhesions (postprocedural) (postinfection); O24.429 Gestational diabetes mellitus in childbirth, unspecified control; Z20.822 Contact with and (suspected) exposure to COVID-19; Z3A.37 37 weeks gestation of pregnancy; Z37.0 Single live birth
CPT/HCPCS: 36415; 80053; 80305; 81001; 82948; 85025; 85610; 85730; 86592; 86886; 86900; 86901; 87086; J0690; J1200; J1885; J2250; J2270; J2310; J2405; J2590; J7060; J7120

== ENCOUNTER 2022-04-30 11:27 | Emergency (ER) | payer OTHER ==
[~2022-04-30] VITALS: Ht 167.6 cm; Wt 86.2 kg
[~2022-04-30 11:27] MED LIST changes: -HUM SUBQ
[2022-04-30 11:43] VITALS: BP 129/91
[2022-04-30] MEDS ORDERED: CEPH-588 PO ×2 (11:57→12:27)
[2022-04-30 12:03] VITALS: BP 129/91
== END 2022-04-30 12:04 | disposition home or self-care (01) ==
LOC: MED 11:27
DX: O99.893 Other specified diseases and conditions complicating puerperium (principal); S31.829A Unspecified open wound of left buttock, initial encounter; J45.909 Unspecified asthma, uncomplicated; Z98.890 Other specified postprocedural states; Z79.899 Other long term (current) drug therapy; X58.XXXA Exposure to other specified factors, initial encounter; Y93.89 Activity, other specified; Y92.89 Other specified places as the place of occurrence of the external cause; Y99.8 Other external cause status
CPT/HCPCS: 99283